=== PATIENT | female | born 1945 | race Caucasian/White ===

== ENCOUNTER → 2019-05-17 10:37 | Outpatient (BNVA) | payer MEDICARE, OTHER, SELFPAY | PROVIDERS: Family Provider Family Medicine; Visit Provider Family Medicine | DX: M25.562 Pain in left knee (principal) | CPT/HCPCS: 73562 ==

== ENCOUNTER → 2019-07-30 11:50 | Outpatient (BNVA) | payer MEDICARE, OTHER, SELFPAY | PROVIDERS: Family Provider Family Medicine; Visit Provider Family Medicine | DX: E78.5 Hyperlipidemia, unspecified (principal); E55.9 Vitamin D deficiency, unspecified; I10 Essential (primary) hypertension; K21.9 Gastro-esophageal reflux disease without esophagitis; G47.00 Insomnia, unspecified | CPT/HCPCS: 80053; 80061; 82306; 84443 ==

== ENCOUNTER → 2019-09-18 16:05 | Outpatient (BNVA) | payer MEDICARE, OTHER, SELFPAY | PROVIDERS: Family Provider Family Medicine; Visit Provider Family Medicine | DX: M25.511 Pain in right shoulder (principal) | CPT/HCPCS: 73030 ==

== ENCOUNTER 2019-10-10 14:20 | Outpatient (CLI) | payer MEDICARE, OTHER, SELFPAY ==
--- NOTE | 2019-10-10 15:15 | XR_ITS ---
WS: [id number] DEXA (DUAL ENERGY X-RAY ABSORPTIOMETRY) Bone mineral density was performed using a Vaxxas machine. HISTORY: post menopausal screen COMPARISON: None available. Lumbar spine BMD (L1-L4): 1.073 g/cm2 T score: -0.9 Z score: 0.2 Total hip BMD: Left: 0.995 g/cm2. T score: -0.1 Z score: 1.1 Right: 0.951 g/cm2. T score: -0.5 Z score: 0.7 10 year probability of a major osteoporotic fracture is 10%. XR/XR DEXA axial skeleton* [id number] IMPRESSION: NORMAL BONE MINERAL DENSITY based upon the WHO classification for females.
== END 2019-10-10 14:21 | disposition home or self-care (01) ==
LOC: RADWPI 14:31
PROVIDERS: Family Provider Family Medicine; Visit Provider Family Medicine
DX: Z78.0 Asymptomatic menopausal state (principal)
CPT/HCPCS: 77080

== ENCOUNTER → 2019-10-21 15:41 | Outpatient (BNVA) | payer MEDICARE, OTHER, SELFPAY | PROVIDERS: Family Provider Family Medicine; Visit Provider Family Medicine | DX: D72.829 Elevated white blood cell count, unspecified (principal); D72.9 Disorder of white blood cells, unspecified; R89.9 Unspecified abnormal finding in specimens from other organs, systems and tissues | CPT/HCPCS: 81000; 85025 ==

== ENCOUNTER → 2019-11-20 10:33 | Outpatient (BNVA) | payer MEDICARE, OTHER, SELFPAY | PROVIDERS: Family Provider Family Medicine; Visit Provider Internal Medicine | DX: L40.50 Arthropathic psoriasis, unspecified (principal); Z79.899 Other long term (current) drug therapy | CPT/HCPCS: 36415; 99213 ==

== ENCOUNTER 2019-11-20 12:30 | Outpatient (CLI) | payer MEDICARE, OTHER, SELFPAY ==
--- NOTE | 2019-11-20 12:38 | XRR_ITS ---
PROCEDURE INFORMATION: Exam: XR Pelvis Exam date and time: 11/20/2019 12:51 PM Age: 74 years old Clinical indication: Pelvic pain; Additional info: Evaluate for si arthritis TECHNIQUE: Imaging protocol: XR pelvis. Views: 1 or 2 view. COMPARISON: No relevant prior studies available. FINDINGS: Bones/joints: Minor SI joint degenerative sclerosis and mild bony overgrowth/spurring inferiorly compatible for patient's age. Soft tissues: Unremarkable. XR/XR pelvis 1-2V* [id number] IMPRESSION: Mild SI joint degenerative changes.
== END 2019-11-20 12:31 | disposition home or self-care (01) ==
LOC: RAD 12:35
PROVIDERS: PCP Family Medicine; Visit Provider Internal Medicine
DX: R10.2 Pelvic and perineal pain (principal); L40.50 Arthropathic psoriasis, unspecified; Z79.899 Other long term (current) drug therapy
CPT/HCPCS: 72170; 85651; 86140; 86812

== ENCOUNTER → 2020-01-16 11:28 | Outpatient (BNVA) | payer MEDICARE, OTHER, SELFPAY | PROVIDERS: PCP Family Medicine; Visit Provider Family Medicine | DX: I10 Essential (primary) hypertension (principal); E55.9 Vitamin D deficiency, unspecified; Z79.899 Other long term (current) drug therapy | CPT/HCPCS: 80053; 80061; 82306; 85025 ==

== ENCOUNTER → 2020-02-13 11:00 | Outpatient (BNVA) | payer MEDICARE, OTHER, SELFPAY | PROVIDERS: PCP Family Medicine; Visit Provider Internal Medicine | DX: L40.50 Arthropathic psoriasis, unspecified (principal) | CPT/HCPCS: 99213; 99214 ==

== ENCOUNTER 2020-03-03 09:36 | Outpatient (CLI) | payer MEDICARE, OTHER, SELFPAY ==
--- NOTE | 2020-03-03 10:00 | MM_ITS ---
WS: [id number] BILATERAL DIGITAL SCREENING MAMMOGRAPHY WITH CAD CLINICAL INFORMATION: screening HISTORY: Screening mammogram. No current complaints. COMPARISON: TECHNIQUE: Bilateral CC and MLO views. FINDINGS: Scattered fibroglandular densities bilaterally. No suspicious focal mass, asymmetry, calcifications, or architectural distortion. No evidence of malignancy. Stable intramammary lymph nodes. Lucent cente red calcification right breast. A few punctate calcifications. MM/[place] [id number] IMPRESSION: BI-RADS: 2-Benign FOLLOW UP: 1 Year Follow-up Recommend return to annual screening mammography.
== END 2020-03-03 09:37 | disposition home or self-care (01) ==
LOC: RADSHAW 09:40
PROVIDERS: PCP Family Medicine; Visit Provider Obstetrics & Gynecology
DX: Z12.31 Encounter for screening mammogram for malignant neoplasm of breast (principal)
CPT/HCPCS: 77067

== ENCOUNTER → 2020-06-30 14:11 | Outpatient (BNVA) | payer MEDICARE, OTHER, SELFPAY | PROVIDERS: PCP Family Medicine; Visit Provider Internal Medicine | DX: L40.50 Arthropathic psoriasis, unspecified (principal); Z79.899 Other long term (current) drug therapy | CPT/HCPCS: 99213 ==

== ENCOUNTER → 2020-07-17 09:21 | Outpatient (BNVA) | payer MEDICARE, OTHER, SELFPAY | PROVIDERS: PCP Family Medicine; Visit Provider Family Medicine | DX: E55.9 Vitamin D deficiency, unspecified (principal); E78.2 Mixed hyperlipidemia; Z79.899 Other long term (current) drug therapy | CPT/HCPCS: 80053; 80061; 82306; 85025; 85651 ==

== ENCOUNTER 2020-10-16 09:25 | Emergency (ER) | payer MEDICARE, OTHER, SELFPAY ==
[2020-10-16] VITALS (7 sets, daily range): BP systolic 138–182; BP diastolic 77–94; PULSE 99–109; RESP 15–16; TEMP 36.8; O2SAT 95–98; BMI 32.9
[2020-10-16] MEDS: famotidine 20 mg/2 mL INJ 40 MG IVP (09:42)
--- NOTE | 2020-10-16 09:53 | W.ED.ALLEREA ---
HPI - Allergic Reaction General: Chief complaint: Airway/Esophagus Foreign Body Stated complaint: ALLERGIC REACTION Time Seen by Provider: 10/16/20 09:43 History of Present Illness: HPI narrative: 75-year-old female presents emergency room complaining of allergic reaction. She woke up this morning the left half of her tongue is swollen. She relates it to some tonsillar irritation. She has some residual tonsil on the left side from a previous tonsillectomy which is a child he reports he gets inflamed and then seems to spread to her tongue she has had this similar episode before was treated with steroids and resolved. In route by EMS she was given epinephrine. She did report some improvement with that. She is not had any difficulty swallowing or breathing with the has had difficulty speaking because the tongue is quite enlarged, she has very slight swelling of the lips and the cheek on the left side.. She reports that the tongue is less swollen than when she arrived here. She is not had any rash or hives. They were not able to determine what triggered her previous episode although she is on an CHRIST inhibitor was at that time as well. She denies any chest pain. No recent illnesses. MD complaint: allergic reaction and facial swelling Onset (ago): minute(s) Exposure: unknown Associated symptoms: Reports dysphagia, hoarseness, lip swelling and tongue swelling; Deny abdominal pain, difficulty breathing, dizziness, facial swelling, itching, nausea, rash or vomiting Severity: moderate Treatment prior to arrival: benadryl and epinephrine Previous Allergic Reaction History: prior ED visit(s) and angioedema Review of Systems Const: Denies: fever(s), chills, body aches, change in appetite, fatigue or malaise ENMT: Reports: hoarseness Card: Denies: chest pain, edema, dyspnea on exertion or orthopnea Resp: Denies: dyspnea, productive cough or non-productive cough GI: Reports: dysphagia; Denies: abdominal pain, nausea or vomiting : Denies: flank pain, difficulty voiding, dysuria, urinary frequency or urinary urgency Skin/Breast: Denies: rash or pruritus Neuro: Denies: dizziness All/Imm: Reports: tongue swelling; Denies: facial swelling PFS ED PFSH: Medical History (Updated 10/16/20 @ 14:57 by Tony Solis DO) GERD (gastroesophageal reflux disease) History of Clostridioides difficile infection Hx of basal cell carcinoma (~2019) Hyperlipidemia Hypertension Takes medication and states that she is pretty well controlled managed by her primary care provider No pertinent past medical history Denies diabetes, asthma, seizures, DVT/PE PCP: Dr. 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 Status post surgical removal of malignant neoplasm of skin 2018--lesion removed from face Family History Son Pancreatic cancer at age 30 Grandmother Diabetes paternal Mother Hyperlipidemia Hypertension Brain cancer Father Hypertension Daughter Breast cancer Diagnosed at age 45 Denies family history of Colon cancer Ovarian cancer Heart disease Uterine cancer Thyroid condition Stroke Social History Smoking and tobacco status: never smoked Second hand smoke exposure: No Alcohol intake: never Lives independently: Yes Household members: spouse Marital status: Current occupational status: retired History of recent travel: No Current gender identity: Female Special lee needs: No Agree to transfusion: Yes Physical Exam Const: COMMON NORMALS: no acute distress GENERAL APPEARANCE: cooperative and comfortable ORIENTATION/CONSCIOUSNESS: Yes awake, Yes oriented to person, Yes oriented to place and Yes oriented to time HENMT: COMMON NORMALS: normocephalic, atraumatic, hearing grossly normal bilaterally, external ears normal, EAC's normal, TM's normal bilaterally, Normal nasal mucous membranes and turbinates present, moist oral mucous membranes and oropharynx normal HEAD & SCALP: normocephalic and atraumatic NOSE: Normal nasal mucous membranes and turbinates present EXTERNAL EAR: Yes external ears normal EXTERNAL AUDITORY CANAL: EAC's normal TYMPANIC MEMBRANE: TM's normal bilaterally TEETH & GINGIVA: Yes other (Swelling of the left half of the tongue none on the right he can visualize ) Neck/C-Spine: COMMON NORMALS: no JVD Resp: COMMON NORMALS: normal respiratory effort, No retractions, No use of accessory muscles and clear to auscultation bilaterally AUSCULTATION: clear to auscultation bilaterally Cardio: COMMON NORMALS: no JVD, regular rate, regular rhythm and No murmurs present (Cardio) RATE: regular rate RHYTHM: regular rhythm GI: COMMON NORMALS: Soft to palpation and No hepatosplenomegaly present AUSCULTATION: Yes normoactive bowel sounds PALPATION: Yes Soft to palpation, No Tenderness to palpation present (GI), No Guarding due to palpation present (GI) and Yes No hepatosplenomegaly present Extremity: COMMON NORMALS: normal to inspection, capillary refill normal, no clubbing, cyanosis or edema, no calf tenderness and no pedal edema Neuro: SENSORIUM/ORIENTATION: Yes oriented to person, Yes oriented to place and Yes oriented to time Skin: COMMON NORMALS: no rashes or lesions noted GENERAL SKIN EXAM: no rashes or lesions noted Course Vital Signs: Vital signs: Vital Signs Temperature 98.2 F 10/16/20 09:48 Pulse Rate 106 H 10/16/20 15:11 Respiratory Rate 15 10/16/20 14:44 Blood Pressure 138/83 10/16/20 15:11 Pulse Oximetry 96 10/16/20 15:11 MDM - Allergic Reaction MDM Narrative: Medical decision making narrative: Patient has an area at the base of tongue is concerning for neoplasm in the area of the base the tongue and larynx. It is resolving now him to discharge home on Medrol Dosepak we will set her up to see ENT for further evaluation of his recurrence return immediately. Lab Data: Labs: Lab Results 10/16/20 10/16/20 10/16/20 Range/Units 09:52 11:25 12:40 Sodium 139 (136-145) mmol/L Potassium 3.5 (3.5-5.1) mmol/L Chloride 104 (98-107) mmol/L Carbon Dioxide 24 (22-29) mmol/L Anion Gap 14.5 (5-19) BUN 23 (8-23) mg/dL Creatinine 1.0 H (0.5-0.9) mg/dL GFR Calculation Not Reportable Glucose 139 H (65-115) mg/dL Calculated Osmolal ity 294 (285-295) mOsm/k g Calcium 9.3 (8.5-10.5) mg/dL SARS-CoV-2 Ag (Rap id) Negative (Negative) Group A Strep Rapi d Negative (Negative) Discharge Plan Discharge Patient Disposition: Home Clinical Impression: Pharyngeal swelling, Swollen tongue Condition: Stable Prescriptions: New Medrol (Ryan) 4 mg tablets,dose pack See Rx Instructions .ROUTE .COMPLEX Qty: 21 RF: 0 No Action Claritin-D 12 Hour 5-120 mg tablet extended release 12 hr 1 tab PO Q12H PRN (Reason: allergy symptoms) Qty: 30 RF: 1 atorvastatin 20 mg tablet 20 mg PO DAILY RF: 0 doxepin 10 mg capsule 10 mg PO DAILY RF: 0 omeprazole 20 mg capsule,delayed release(DR/EC) 20 mg PO DAILY RF: 0 metoprolol succinate 25 mg tablet extended release 24 hr 12.5 mg PO BID RF: 0 lisinopril-hydrochlorothiazide 10-12.5 mg tablet 1 tab PO DAILY RF: 0 Enbrel SureClick 50 mg/mL (1 mL) pen injector 50 mg SUBCUT Q7D RF: 0 Discharge Orders: Discharge ED (Routine); Ordered 10/16/20 Ordered By: Tony Solis Referrals: Karis Garza MD [Primary Care Provider] - Patient Instructions: Opioid Safety Activity Restrictions/Additional Instructions: business support manager will make arrangements for follow-up with Dr. Reddy. Return if you have further problems. Coding Level of Care Code ED Radiographer Cardiac Catheterization for Chg Fwd Exam Comprehensive
--- NOTE | 2020-10-16 11:55 | CT_ITS ---
WS: [id number] CT NECK WITH CONTRAST HISTORY: neck/tongue swelling TECHNIQUE: Contiguous 5 mm axial images are performed through the neck with intravenous contrast. Sag ittal and coronal reformats are also submitted. All CT scans at [facility] use at least o ne of these dose optimization techniques: automated exposure control; mA and/or kV adjustment per pat ient size (includes targeted exams where dose is matched to clinical indication); or iterative recons truction. CONTRAST: CONTRAST: Visipaque 320; 95 mL IV. DLP: 455.24 mGy.cm COMPARISON: None available. Significant low attenuation centered within the LEFT larynx involving the LEFT lateral epiglottis, ph aryngoepiglottic fold, preepiglottic space and the LEFT aryepiglottic fold with extension posteriorly to the pharyngeal wall. Area of marked decreased attenuation extends over length of 2.6 cm x 1.5 cm. The tongue base is normal. There is very mild asymmetry along the LEFT palatine tonsil with mild effacement of the LEFT paraphar yngeal fat. There are small cervical chain lymph nodes. The greatest is at level 2A on the LEFT measuring 8 mm. Thyroid gland and salivary glands are normally enhancing with no masses. Straightening of the normal cervical lordosis. Severe degenerative disc space narrowing at C3-4 and C 5-6. Visualized portions of the skull base demonstrate no abnormalities. Orbits and globes are within norm al limits. No soft tissue masses. Visualized paranasal sinuses and mastoid air cells are normal. Chronic emphysema at the lung apices. CT/CT neck w con* [id number] IMPRESSION: 1. Marked low-attenuation with soft tissue thickening centered in the LEFT lat eral larynx involving the epiglottis, pharyngeal epiglottic fold, preepiglottic space in the LEFT aryepiglottic fold with extension to the posterior pharyngea l wall. Marked low attenuation may all be edema. Underlying neoplasm not exclu ded. 2. There is also asymmetric fullness in the LEFT palatine tonsil. Recommend di rect visualization. Neoplasm needs to be excluded. 3. No significant adenopathy. Notified Tony Solis DO at 10/16/2020 1:40 PM.1
[2020-10-16 11:57] LABS: SARS Covid-2 Antigen Negative (Negative)
[2020-10-16 12:34] LABS: Anion Gap 14.5 (5-19); Blood Urea Nitrogen 23 mg/dL (8-23); Calcium 9.3 mg/dL (8.5-10.5); Carbon Dioxide 24 mmol/L (22-29); Chloride 104 mmol/L (98-107); Glucose 139 mg/dL (65-115); Osmolality Calculated 294 mOsm/kg (285-295); Potassium 3.5 mmol/L (3.5-5.1); Sodium 139 mmol/L (136-145)
[2020-10-16 12:59] LABS: Rapid Strep A Test Negative (Negative)
[2020-10-16] MEDS: iodixanol 320 mg/mL 100mL Btl IV (13:19)
--- NOTE | 2020-10-19 08:58 | DCPLANNER ---
biofuels operations manager had message to schedule a follow up appointment for patient with ENT for questionable laryngeal mass and swelling. biofuels operations manager emailed patients information to Neelima Headley and Elisa at [facility]. Patients information will be printed and reviewed. Clinic will call patient with appointment information.
--- NOTE | 2020-10-21 12:01 | DCPLANNER ---
Patient called classification case manager, stating that she wanted to be referred to Dr. Brito for ENT. software sales manager faxed patients information to the office of Dr. Brito. software sales manager emailed the ENT clinic, letting Fang know that patient wanted to be seen with Dr. Brito.
--- NOTE | 2020-10-27 13:20 | DCPLANNER ---
Patient has a follow up appointment scheduled for Monday, November 02, 2020 at 2:[address] Brito. Clinic will call patient with appointment information.
--- NOTE | 2020-11-04 15:17 | DCPLANNER ---
Patient had a follow up appointment scheduled for 11.02.[address] Brito - patient did attend the appointment.
== END 2020-10-16 15:17 | disposition home or self-care (01) ==
PROVIDERS: Emergency Provider Family Medicine; PCP Family Medicine
DX: J39.2 Other diseases of pharynx (principal); K14.9 Disease of tongue, unspecified; E78.5 Hyperlipidemia, unspecified; I10 Essential (primary) hypertension; Z20.822 Contact with and (suspected) exposure to COVID-19
CPT/HCPCS: 70491; 80048; 87081; 87426; 87880; 96374; 96375; 99284; J2930; J3490; Q9967

== ENCOUNTER → 2020-11-09 16:31 | Outpatient (BNVA) | payer MEDICARE, OTHER, SELFPAY | PROVIDERS: PCP Family Medicine; Visit Provider Nurse Practitioner Family | DX: M25.562 Pain in left knee (principal); Z96.652 Presence of left artificial knee joint | CPT/HCPCS: 73562 ==

== ENCOUNTER 2020-11-17 10:15 | Outpatient (CLI) | payer MEDICARE, OTHER, SELFPAY ==
--- NOTE | 2020-11-17 10:22 | FL_ITS ---
WS: [id number] ESOPHAGRAM WITH FLUOROSCOPY HISTORY: DYSPHAGIA COMPARISON: None available. FLUOROSCOPY TIME: 1.1 minutes. Esophagus and swallowing function: Patient swallowed the barium mixture without difficulty. There is evidence for prior fundoplication. Barium traveled readily through the esophagus although there is mi ld tortuosity and mild dysmotility. There is a small recurrent hiatal hernia. No soft tissue abnormal ity noted within the cervical esophagus. No filling defects. There is mild encroachment into the post erior cervical esophagus by osteophytes from the cervical spine. These are most significant at C6-7. Gastroesophageal reflux: None. Hiatal hernia: Small hiatal hernia. FL/FL barium swallow [id number] IMPRESSION: 1. No filling defects or obstruction within the cervical esophagus. 2. Cervical osteophytes encroach into the posterior cervical esophagus at C6-7 with no obstruction of flow. 3. Recurrent small hiatal hernia.
--- NOTE | 2020-11-17 13:00 | MR_ITS ---
WS: [id number] MRI NECK with and without CONTRAST. COMPARISON: CT 10/16/2020 Multiplanar, multisequence imaging is performed with and without contrast. Sagittal and axial T1 fat sat sequences post-MultiHance 19 cc IV. Study is significantly compromised by motion back. Patient was repeatedly swallowing during the exami nation. There is persistent asymmetric soft tissue thickening involving the LEFT tongue base into the LEFT l ingual and palatine tonsil. The signal intensity is very similar to the RIGHT sided soft tissues. No focal discrete mass. Infiltrating neoplasm needs to be evaluated. This is similar to the finding at seen on the neck CT from 10/16/2020. There is less soft tissue extension into the LEFT aryepiglottic fo ld as seen on the CT. No compromise of the airway. No lymph nodes. Rim calcification within a RIGHT t hyroid nodule. Nodule measures 7 mm. Visualization of the upper thoracic structures is limited as there is significant motion artifact. MR/MR orbit face neck wo/w* [id number] IMPRESSION: 1. Persistent asymmetric soft tissue thickening involving the LEFT tongue base into the palatine and lingual tonsil. Slight improvement in the previously carina cribed soft tissue thickening that extended into the LEFT aryepiglottic fold. N o discrete change in enhancement as compared to the RIGHT side. Changes are pre dominantly due to moderate increase soft tissue thickening. This area should be readily visible by laryngoscopy. 2. No adenopathy.
[2020-11-17] MEDS: gadobenate dimeglumine 20 mL vial IV (15:40)
== END 2020-11-17 10:16 | disposition home or self-care (01) ==
PROVIDERS: PCP Family Medicine; Visit Provider Specialist
DX: R13.10 Dysphagia, unspecified (principal)
CPT/HCPCS: 70543; 74220; A9577

== ENCOUNTER → 2020-12-07 11:38 | Outpatient (BNVA) | payer MEDICARE, OTHER, SELFPAY | PROVIDERS: PCP Family Medicine; Visit Provider Internal Medicine | DX: L40.50 Arthropathic psoriasis, unspecified (principal); Z79.899 Other long term (current) drug therapy | CPT/HCPCS: 80053; 85025; 85651; 86140 ==

== ENCOUNTER → 2020-12-14 13:28 | Outpatient (BNVA) | payer MEDICARE, OTHER, SELFPAY | PROVIDERS: PCP Family Medicine; Visit Provider Internal Medicine | DX: L40.50 Arthropathic psoriasis, unspecified (principal); Z79.899 Other long term (current) drug therapy; R22.0 Localized swelling, mass and lump, head; Z87.891 Personal history of nicotine dependence | CPT/HCPCS: 99213; 99214 ==

== ENCOUNTER → 2020-12-15 11:46 | Outpatient (BNVA) | payer MEDICARE, OTHER, SELFPAY | PROVIDERS: PCP Family Medicine; Visit Provider Family Medicine | DX: R30.0 Dysuria (principal); N20.0 Calculus of kidney | CPT/HCPCS: 81003; 87086 ==

== ENCOUNTER 2020-12-21 12:57 | Outpatient (CLI) | payer MEDICARE, OTHER, SELFPAY ==
--- NOTE | 2020-12-21 13:33 | ECG_ITS ---
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 Measurements Intervals [place] Rate: 78 P: 37 SC: 144 QRS: -36 QRSD: 138 T: 70 QT: 379 QTc: 434 Interpretive Statements SINUS RHYTHM POSSIBLE LEFT ATRIAL ENLARGEMENT [-0.1mV P-WAVE IN V1/V2] LEFT AXIS DEVIATION [QRS AXIS < -30] LEFT BUNDLE BRANCH BLOCK [120+ ms QRS DURATION, 80+ ms Q/S IN V1/V2, 85+ ms R IN I/aVL/V5/V6] No previous ECG available for comparison Electronically Signed On 12-21-2020 14:23:21 CDT by Jozef Boykin M.D. [id number] f
== END 2020-12-21 12:58 | disposition home or self-care (01) ==
PROVIDERS: PCP Family Medicine; Visit Provider Specialist
DX: J35.1 Hypertrophy of tonsils (principal); R94.31 Abnormal electrocardiogram [ECG] [EKG]; I44.7 Left bundle-branch block, unspecified
CPT/HCPCS: 93005

== ENCOUNTER → 2021-03-09 10:22 | Outpatient (BNVA) | payer MEDICARE, OTHER, SELFPAY | PROVIDERS: PCP Family Medicine; Visit Provider Internal Medicine | DX: L40.50 Arthropathic psoriasis, unspecified (principal); Z79.899 Other long term (current) drug therapy | CPT/HCPCS: 80053; 85025; 85651; 86140 ==

== ENCOUNTER → 2021-03-17 14:25 | Outpatient (BNVA) | payer MEDICARE, OTHER, SELFPAY | PROVIDERS: PCP Family Medicine; Visit Provider Internal Medicine | DX: L40.50 Arthropathic psoriasis, unspecified (principal); Z79.899 Other long term (current) drug therapy | CPT/HCPCS: 99214 ==

== ENCOUNTER 2021-03-26 11:27 | Outpatient (CLI) | payer MEDICARE, OTHER, SELFPAY ==
--- NOTE | 2021-03-26 12:00 | MM_ITS ---
WS: [id number] BILATERAL DIGITAL SCREENING MAMMOGRAPHY WITH CAD CLINICAL INFORMATION: Z12.39 - Encounter for other screening for malignant neop... HISTORY: Screening mammogram. No current complaints. COMPARISON: March 03, 2020 TECHNIQUE: Bilateral CC and MLO views. FINDINGS: Scattered fibroglandular densities bilaterally. Punctate and lucent center calcifications. No suspici ous focal mass, asymmetry, calcifications , or architectural distortion. No evidence of malignancy. MM/[place] [id number] IMPRESSION: BI-RADS: 2-Benign FOLLOW UP: 1 Year Follow-up Recommend return to annual screening mammography.
== END 2021-03-26 11:28 | disposition home or self-care (01) ==
LOC: RADSHAW 11:38
PROVIDERS: PCP Family Medicine; Visit Provider Obstetrics & Gynecology
DX: Z12.31 Encounter for screening mammogram for malignant neoplasm of breast (principal)
CPT/HCPCS: 77067

== ENCOUNTER 2021-04-06 15:31 | Outpatient (CLI) | payer MEDICARE, OTHER, SELFPAY ==
--- NOTE | 2021-04-06 15:45 | USCV_ITS ---
Cheryl Beckwith Age: 75 Gender: F : 1945 Exam Date: 04/06/2021 16:10 Ordering Phys: Jozef Boykin M.D ([email or web address]) Technologist: JESSICA Exam Location: [facility] [place] Indication: dx with heart block 2019. c/o shortness of breath 1-2 years. No hx cardiac intervention. BP: / HR: 66 Rhythm: Sinus Technical Quality: Adequate MEASUREMENTS (Male / Female) Normal Values 2D ECHO LV Diastolic Diameter PLAX 3.7 cm 4.2 - 5.9 / 3.9 - 5.3 cm LV Systolic Diameter PLAX 2.4 cm IVS Diastolic Thickness 1.2 cm 0.6 - 1.0 / 0.6 - 0.9 cm IVS Systolic Thickness 1.4 cm LVPW Diastolic Thickness 1.2 cm 0.6 - 1.0 / 0.6 - 0.9 cm LVPW Systolic Thickness 1.7 cm LVOT Diameter 1.9 cm LV Ejection Fraction 2D Teich 66.0 % LV Ejection Fraction MOD 2C 55.8 % LV Ejection Fraction 2C AL 57.4 % LA Diameter 4.4 cm LA Width 3.6 cm LA Height 5.5 cm RA Width 4.0 cm RA Height 5.3 cm Aorta at Sinotubular Diameter 2.6 cm M-MODE Aortic Annulus Diameter 2.8 cm LA Ao Ratio MM 1.6 MV E Point Septal Separation 0.3 cm DOPPLER AV Peak Velocity 166.0 cm/s LVOT Peak Velocity 125.0 cm/s AV Area Cont Eq vti 2.2 cm squared AV Area Cont Eq pk 2.1 cm squared MV Area PHT 4.1 cm squared Mitral E to A Ratio 0.9 MV E' Velocity 52.0 cm/s Mitral E to MV E' Ratio 10.2 Mitral E to LV E' Lateral Ratio 7.1 Mitral E to LV E' Septal Ratio 18.2 TR Peak Velocity 248.0 cm/s TR Peak Gradient 24.6 mmHg TV Peak E Velocity 41.0 cm/s Right Atrial Pressure 10.0 mmHg Pulmonary Artery Systolic Pressu 34.6 mmHg PV Peak Velocity 120.0 cm/s RV Acceleration Time 0.1 s RV Ejection Time 0.3 s RV AcT/ET 0.2 FINDINGS Left Ventricle Normal left ventricular size. LV systolic function is normal with EF 55 to 60%. No regional wall motion abnormalities are seen. Grade 1 diastolic dysfunction. Right Ventricle The right ventricle is normal in size and function. Right Atrium The right atrium is normal in size. Left Atrium The left atrium is normal in size. Mitral Valve Moderate mitral annular calcification without significant stenosis or prolapse. There is mild to moderate mitral regurgitation. Aortic Valve Structurally normal aortic valve without significant sclerosis or stenosis. There is no aortic regurgitation. Tricuspid Valve Structurally normal tricuspid valve without significant stenosis. Mild tricuspid regurgitation. RVSP is 35 to 40 mmHg. This is consistent with mild pulmonary hypertension Pulmonic Valve Structurally normal pulmonic valve without significant stenosis. There is trace pulmonic regurgitation. Pericardium Normal pericardium without effusion. Aorta Normal ascending aorta dimension. CONCLUSIONS LV systolic function is normal with EF of 55-60% Grade 1 disatolic dysfunction Mild to moderate mitral regurgitation Moderate mitral annular calcification Mild tricuspid regurgitation Mild pulmonary hypertension Trace pulmonic regurgitation No comparison studies are available Jozef Boykin MD (Electronically Signed) Final Date: 16 April 2021 11:04 S
== END 2021-04-06 15:32 | disposition home or self-care (01) ==
LOC: RAD 15:34
PROVIDERS: PCP Family Medicine; Visit Provider Internal Medicine
DX: R06.02 Shortness of breath (principal); R07.9 Chest pain, unspecified; I27.20 Pulmonary hypertension, unspecified; I34.0 Nonrheumatic mitral (valve) insufficiency; I07.1 Rheumatic tricuspid insufficiency
CPT/HCPCS: 93306

== ENCOUNTER 2021-04-21 18:19 | Emergency (ER) | payer MEDICARE, OTHER, SELFPAY ==
[2021-04-21 18:26] VITALS: BP 189/78; PULSE 117; RESP 20; TEMP 36.6; O2SAT 99; BMI 32.0
--- NOTE | 2021-04-21 18:39 | W.ED.GENADLT ---
HPI - General Adult General: Chief complaint: Allergic Reaction Stated complaint: face numb and swelling Time Seen by Provider: 04/21/21 18:38 History of Present Illness: 75-year-old female comes in today with concerns of swelling of the left side of the tongue and some difficulty swallowing. Patient has had this 2 other times in the last year. Patient reports the first time she was seen in the office of her primary care and they gave her a shot of steroid and watched her for a while and she got better and went home. Last time patient was seen in October and was at that time treated with epinephrine on the way to the ER for concerns of an allergic reaction. Patient does not think it is secondary to an allergen. Patient has had her tonsils removed in January due to a abnormal swelling and mass of the left tonsil that was found and October. Patient also at that time noted that she had some abnormal thickening of the tissue at the base of her tongue. Patient does report some concern of this abnormal thickening and seems to be worried of cancer. After further discussion patient is on lisinopril which is known for angioedema reaction, and Enbrel which can cause anaphylaxis. Patient appears in no acute distress. Respirations are even. That patient does report some difficulty swallowing. Onset (ago): hour(s) Location: mouth Severity: mild Review of Systems ENMT: Reports: swelling of lips/tongue PFSH ED PFSH: Medical History History of Clostridioides difficile infection Hx of basal cell carcinoma (~2018) Hyperlipidemia Diagnosed in her 40s and is on medication managed by her primary care provider. Hypertension Diagnosed in her 40s and is on medication managed by her primary care provider No pertinent past medical history Denies diabetes, asthma, seizures, DVT/PE PCP: Dr. Gazra Psoriatic arthritis Diagnosed in her 60s and was most recently on Embril which was recently stopped. This is managed by her personal carer-Dr. Black Surgical History History of cholecystectomy (~2008) Laparoscopic procedure performed in 2007 History of hernia surgery (~2018) 02/23/2018 performed in [facility] History of total knee replacement (~2009) Right side Status post left knee replacement Performed in 04/2020 in [facility] Status post surgical removal of malignant neoplasm of skin 2018--lesion removed from face Tonsillectomy planned 01/19/2021--scheduled for a tonsillectomy for left-sided throat swelling and inflamed tonsils Family History Son Pancreatic cancer at age 30 Grandmother Diabetes paternal Mother Hyperlipidemia Hypertension Brain cancer Father Hypertension Daughter Breast cancer Diagnosed at age 45 Denies family history of Colon cancer Ovarian cancer Heart disease Uterine cancer Thyroid condition Stroke Social History Smoking and tobacco status: never smoked Second hand smoke exposure: Yes Alcohol intake: never Marital status: Physical Exam Const: COMMON NORMALS: alert HENMT: COMMON NORMALS: normocephalic and Normal external nose present HEAD & SCALP: normocephalic NOSE: Normal external nose present MOUTH: lip normal and tongue abnormal hypertrophic (left) THROAT: posterior oropharynx normal Eye: COMMON NORMALS: Equal, round and reactive pupils present and EOMs intact bilaterally PUPIL: Yes Equal, round and reactive pupils present Neck/C-Spine: COMMON NORMALS: full ROM and no lymphadenopathy Resp: COMMON NORMALS: normal respiratory effort and clear to auscultation bilaterally AUSCULTATION: clear to auscultation bilaterally Cardio: COMMON NORMALS: regular rate and regular rhythm RATE: regular rate RHYTHM: regular rhythm Extremity: COMMON NORMALS: normal to inspection and no pedal edema Neuro: SENSORIUM/ORIENTATION: Yes alert Psych: COMMON NORMALS: cooperative Skin: COMMON NORMALS: no rashes or lesions noted GENERAL SKIN EXAM: no rashes or lesions noted Course ED course: 2100 swelling is improved, awaiting CT report. Vital Signs: Vital signs: Vital Signs Temperature 97.8 F 04/21/21 18:26 Pulse Rate 97 04/21/21 21:15 Respiratory Rate 96 H 04/21/21 21:15 Blood Pressure 168/80 04/21/21 21:15 Pulse Oximetry 96 04/21/21 21:15 MDM - General Adult Medical Decision Making 75-year-old female comes in today with concerns of swelling of the left side of the tongue. Patient was concerned about previous study showing some abnormal thickening of the tongue with possible mass. On exam patient does have some swelling of the tongue, is managing secretions well, airway is open. No acute distress is noted. Vital signs are normal. Differential diagnosis includes angioedema, anaphylaxis, lymphedema. Patient was given 80 mg of Solu-Medrol IM and 25 mg of Benadryl. This brought resolution to the tongue swelling. Patient will be continued on prednisone 20 mg daily for the next 5 days. I reviewed patient's medication records and noticed that patient is on lisinopril and Enbrel. Either of these medications may cause similar reactions. I recommended patient talk with her primary care about stopping lisinopril and may be switching to losartan as it would be less likely cause angioedema. I also discussed Enbrel and its propensity to cause anaphylaxis. Patient would take this into advisement and talk to her specialist and her primary care tomorrow. CT of the soft tissues of the neck indicated no abnormalities at this time or increased aryepiglottic swelling or any other signs of mass. Most likely the swelling was probably due to patient's tonsillar mass that was removed in January. Lab Data : 04/21/21 20:[address] 04/21/21 18:54 IMPRESSION: 1. Beam hardening artifact related to dental work the partially obscures the oral cavity. 2. The palatine tonsils are unremarkable. No tonsillar enlargement noted. Previously noted thickening of the left palatine tonsil, seen on CT of 10/16/2020, is not identified on the current study. 3. Epiglottis is normal in appearance. No thickening of the aryepiglottic folds. Previous thickening of the left aryepiglottic fold seen on 10/16/2020 is not identified. 4. No edema or fluid collection demonstrated in the soft tissues. 5. Densely calcified 11 mm right thyroid nodule, unchanged from prior studies. No follow-up recommended. 6. No new abnormality demonstrated, when compared to the prior study. Laboratory Results Sodium 132 mmol/L (136-145) L 04/21/21 20:00 Potassium 4.2 mmol/L (3.5-5.1) 04/21/21 20:00 Chloride 98 mmol/L (98-107) 04/21/21 20:00 Carbon Dioxide 20 mmol/L (22-29) L 04/21/21 20:00 Anion Gap 18.2 (5-19) 04/21/21 20:00 BUN 18 mg/dL (8-23) 04/21/21 20:00 Creatinine 0.9 mg/dL (0.5-0.9) 04/21/21 20:00 GFR Calculation Not Reportable 04/21/21 20:00 Glucose 115 mg/dL (65-115) 04/21/21 20:00 Calculated Osmolality 277 mOsm/kg (285-295) L 04/21/21 20:00 Calcium 10.6 mg/dL (8.5-10.5) H 04/21/21 20:00 Discharge Plan Discharge Patient Disposition: Home Clinical Impression: Angioedema Qualifiers: Encounter type: initial encounter Qualified Code(s): T78.3XXA - Angioneurotic edema, initial encounter Condition: Stable Prescriptions: New prednisone 20 mg tablet 20 mg PO DAILY 5 Days Qty: 5 0RF No Action prednisone 5 mg tablet See Rx Instructions PO DAILY Qty: 60 0RF Rx Instructions: 1-2 tablets daily as needed PO daily; acetaminophen-codeine 300-60 mg tablet 1 tab PO Q8H PRN (Reason: pain) Qty: 30 0RF cholecalciferol (vitamin D3) [Optimal D3] 1,250 mcg (50,000 unit) capsule 1,250 mcg PO .once weekly Qty: 30 0RF omeprazole 20 mg capsule,delayed release(DR/EC) See Rx Instructions .ROUTE .COMPLEX Qty: 90 0RF Dose Instruction: Take 1 capsule by mouth once daily Rx Instructions: Take 1 capsule by mouth once daily atorvastatin 20 mg tablet 20 mg PO DAILY Qty: 90 1RF metoprolol succinate 25 mg tablet extended release 24 hr See Rx Instructions .ROUTE .COMPLEX Qty: 90 0RF Dose Instruction: Take 1/2 (one-half) tablet by mouth twice daily Rx Instructions: Take 1/2 (one-half) tablet by mouth twice daily doxepin 10 mg capsule See Rx Instructions .ROUTE .COMPLEX Qty: 90 0RF Dose Instruction: Take 1 capsule by mouth once daily Rx Instructions: Take 1 capsule by mouth once daily lisinopril-hydrochlorothiazide 10-12.5 mg tablet See Rx Instructions .ROUTE .COMPLEX Qty: 90 0RF Dose Instruction: Take 1 tablet by mouth once daily Rx Instructions: Take 1 tablet by mouth once daily Enbrel SureClick 50 mg/mL (1 mL) pen injector 50 mg SUBCUT Q7D Qty: 4 5RF Discharge Orders: Discharge ED (Routine); Ordered 04/21/21 Ordered By: Harpal Lyons Referrals: Karis Garza MD [Primary Care Provider] - Discharge Diet: Usual diet Discharge Activity: Increase activity as tolerated Patient Instructions: Angioedema (ED) Activity Restrictions/Additional Instructions: Home and rest. Continue with prednisone 20 mg daily for the next 5 days. I would recommend talking with your family physician about your lisinopril-containing medications and Enbrel regarding concerns of this may be the cause for your angioedema which is swelling of the tongue and mouth. Use Benadryl as needed. Follow-up with primary care. Return to the ER for worsening symptoms or new concerns. Coding Level of Care Code ED Wordpress Developer for Chg Fwd Exam Comprehensive
--- NOTE | 2021-04-21 18:54 | CTR_ITS ---
PROCEDURE INFORMATION: Exam: CT Neck With Contrast Exam date and time: 04/21/2021 6:54 PM Age: 75 years old Clinical indication: Mass, lump, or swelling in neck; Prior surgery; Surgery type: Tonsillectomy; Patient HX: C/O swelling to left side of tongue and face. ; Additional info: Swelling left tongue TECHNIQUE: Imaging protocol: Computed tomography images of the neck with contrast. Radiation optimization: All CT scans at this facility use at least one of these dose optimization techniques: automated exposure control; mA and/or kV adjustment per patient size (includes targeted exams where dose is matched to clinical indication); or iterative reconstruction. Contrast material: OMNI 300; Contrast volume: 95 ml; Contrast route: INTRAVENOUS (IV); COMPARISON: 1. MR orbit face neck wo/w* [id number] 11/17/2020 11:[address] neck w con* [id number] 10/16/2020 1:14 PM RADIATION DOSE METRICS: Total DLP (mGy-cm): 439.48 FINDINGS: Limitations: Beam hardening artifact related to dental work the partially obscures the oral cavity. Paranasal sinuses: Included paranasal sinuses are clear. Nasopharynx: Unremarkable. Oropharynx: The palatine tonsils are unremarkable. No tonsillar enlargement noted. The base of the tongue is unremarkable in appearance. Lingual tonsils are unremarkable. Hypopharynx: Unremarkable. Larynx: Epiglottis is normal in appearance. No thickening of the aryepiglottic folds. Retropharyngeal space: Unremarkable. Submandibular/Parotid glands: Bilateral submandibular glands and bilateral parotid glands are unremarkable. Thyroid: Densely calcified 11 mm right thyroid nodule, unchanged from prior studies. Lymph nodes: No pathologically enlarged lymph nodes are demonstrated. Trachea: Unremarkable. Lungs: Lung apices are free of infiltrates. Bones/joints: Degenerative changes of the cervical spine. No acute osseous abnormality noted. Soft tissues: No significant soft tissue swelling. No fluid collection. CT/CT neck w con* [id number] IMPRESSION: 1. Beam hardening artifact related to dental work the partially obscures the oral cavity. 2. The palatine tonsils are unremarkable. No tonsillar enlargement noted. Previously noted thickening of the left palatine tonsil, seen on CT of 10/16/2020, is not identified on the current study. 3. Epiglottis is normal in appearance. No thickening of the aryepiglottic folds. Previous thickening of the left aryepiglottic fold seen on 10/16/2020 is not identified. 4. No edema or fluid collection demonstrated in the soft tissues. 5. Densely calcified 11 mm right thyroid nodule, unchanged from prior studies. No follow-up recommended. 6. No new abnormality demonstrated, when compared to the prior study.
[2021-04-21] MEDS: diphenhydrAMINE 50 mg/mL SDV 1mL 25 MG IM (19:12)
[2021-04-21 20:52] LABS: Anion Gap 18.2 (5-19); Blood Urea Nitrogen 18 mg/dL (8-23); Calcium 10.6 mg/dL (8.5-10.5); Carbon Dioxide 20 mmol/L (22-29); Chloride 98 mmol/L (98-107); Glucose 115 mg/dL (65-115); Osmolality Calculated 277 mOsm/kg (285-295); Potassium 4.2 mmol/L (3.5-5.1); Sodium 132 mmol/L (136-145)
[2021-04-21] MEDS: iohexol 300 mg/mL 100 mL Btl IV (21:06)
[2021-04-21 21:15] VITALS: BP 168/80; PULSE 97; RESP 96; O2SAT 96
== END 2021-04-21 22:34 | disposition home or self-care (01) ==
PROVIDERS: Emergency Provider Nurse Practitioner Family; PCP Family Medicine
DX: T78.3XXA Angioneurotic edema, initial encounter (principal); E78.5 Hyperlipidemia, unspecified; I10 Essential (primary) hypertension; Z77.22 Contact with and (suspected) exposure to environmental tobacco smoke (acute) (chronic)
CPT/HCPCS: 70491; 80048; 96372; 99283; J1200; J2930; Q9967

== ENCOUNTER → 2021-04-30 10:49 | Outpatient (BNVA) | payer MEDICARE, OTHER, SELFPAY | PROVIDERS: PCP Family Medicine; Visit Provider Internal Medicine | DX: L40.50 Arthropathic psoriasis, unspecified (principal); R22.0 Localized swelling, mass and lump, head | CPT/HCPCS: 99214 ==

== ENCOUNTER → 2021-05-13 11:16 | Outpatient (BNVA) | payer MEDICARE, OTHER, SELFPAY | PROVIDERS: PCP Family Medicine; Visit Provider Family Medicine | DX: Z47.1 Aftercare following joint replacement surgery (principal); M25.561 Pain in right knee; Z96.651 Presence of right artificial knee joint | CPT/HCPCS: 73562 ==

== ENCOUNTER → 2021-07-09 11:29 | Outpatient (BNVA) | payer MEDICARE, OTHER, SELFPAY | PROVIDERS: PCP Family Medicine; Visit Provider Internal Medicine | DX: L40.50 Arthropathic psoriasis, unspecified (principal); Z79.899 Other long term (current) drug therapy; R73.09 Other abnormal glucose; I10 Essential (primary) hypertension; E78.5 Hyperlipidemia, unspecified; E55.9 Vitamin D deficiency, unspecified | CPT/HCPCS: 80053; 80061; 82306; 83036; 85025; 85651 ==

== ENCOUNTER → 2021-07-14 13:13 | Outpatient (BNVA) | payer MEDICARE, OTHER, SELFPAY | PROVIDERS: PCP Family Medicine; Visit Provider Internal Medicine | DX: L40.50 Arthropathic psoriasis, unspecified (principal); Z79.899 Other long term (current) drug therapy | CPT/HCPCS: 99214 ==

== ENCOUNTER 2021-07-25 08:02 | Emergency (ER) | payer MEDICARE, OTHER, SELFPAY ==
[2021-07-25 08:14] VITALS: BP 161/102; PULSE 70; RESP 15; TEMP 37.1; O2SAT 95; BMI 34.0
[2021-07-25 08:35] VITALS: BP 155/90; PULSE 71; RESP 16; O2SAT 95
--- NOTE | 2021-07-25 08:38 | ED_ITS ---
HPI - Allergic Reaction General: Chief complaint: Allergic Reaction Stated complaint: right side facial swelling/possible allergic react Time Seen by Provider: 07/25/21 08:11 Source: patient Mode of arrival: ambulatory Limitations: no limitations History of Present Illness: HPI narrative: 76-year-old female presents to the ER today for right-sided facial swelling that began this morning. Patient reports when she went to bed things were fine. She woke up this a.m. with right-sided facial swelling. Patient reports this is happened to her in the past several times. 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 Patient had an EpiPen but no longer does because the EpiPen caused her to have elevated blood pressure when it was given. Patient denies any difficulty breathing. She reports a scratchy throat but denies any tongue swelling. She reports this morning when she noticed the swelling she applied ice and took a prednisone. Patient thinks the dose of prednisone was 5 mg. She reports she did start Ozempic injections on Monday. She also woke up this morning with watery diarrhea. Denies any vomiting or nausea. Denies any change in diet. Denies any sick contacts. Patient denies any headache, fever, chills, chest pain, shortness of breath, nausea, vomiting. Review of Systems General: Reports: 10 or more systems reviewed and unremarkable except in HPI and below PFSH ED PFSH: Medical History History of Clostridioides difficile infection Hx of basal cell carcinoma (~2018) Hyperlipidemia Hypertension No pertinent past medical history Denies diabetes, asthma, seizures, DVT/PE PCP: Dr. Garza Psoriatic arthritis Diagnosed in her 60s and was most recently on Embril which was recently stopped. This is managed by her assembly loader-Dr. Black Surgical History History of cholecystectomy (~2008) Laparoscopic procedure performed in 2007 History of hernia surgery (~2017) 02/23/2018 performed in [facility] History of total knee replacement (~2009) Right side Status post left knee replacement Performed in 04/2020 in [facility] Status post surgical removal of malignant neoplasm of skin 2018--lesion removed from face Tonsillectomy planned 01/19/2021--scheduled for a tonsillectomy for left-sided throat swelling and inflamed tonsils Family History Son Pancreatic cancer at age 30 Grandmother Diabetes paternal Mother Hyperlipidemia Hypertension Brain cancer Father Hypertension Daughter Breast cancer Diagnosed at age 45 Denies family history of Colon cancer Ovarian cancer Heart disease Uterine cancer Thyroid condition Stroke Social History Smoking and tobacco status: never smoked Second hand smoke exposure: Yes Alcohol intake: never Marital status: Female Reproductive History: Date of menopause: 03/13/91 Physical Exam Const: COMMON NORMALS: no acute distress, average body habitus, patient oriented x3, healthy appearing, alert and well nourished HENMT: FACE & SINUS: edema (Mild right-sided); no ecchymosis, no erythema and no Facial tenderness on exam of face and sinuses MOUTH: Normal oral and palatal mucosa present, lip normal, tongue normal and Normal salivary glands and ducts present THROAT: posterior oropharynx normal Eye: COMMON NORMALS: conjunctivae normal CONJUNCTIVA: Yes conjunctivae normal Neck/C-Spine: COMMON NORMALS: full ROM and no lymphadenopathy Resp: COMMON NORMALS: normal respiratory effort, No retractions and clear to auscultation bilaterally EFFORT & INSPECTION: Yes able to speak in complete sentences AUSCULTATION: clear to auscultation bilaterally, no crackles, no rales, no rhonchi and no wheezes Cardio: COMMON NORMALS: regular rate and regular rhythm RATE: regular rate RHYTHM: regular rhythm GI: COMMON NORMALS: Normal to inspection, nondistended, normoactive bowel sounds present, Soft to palpation and non-tender PALPATION: Yes Soft to palpation Extremity: COMMON NORMALS: normal to inspection and full ROM Neuro: COMMON NORMALS: patient oriented x3 SENSORIUM/ORIENTATION: Yes alert Psych: COMMON NORMALS: mental status grossly normal, Normal thought process present, cooperative and speech normal SPEECH: Yes normal speech THOUGHT PROCESS: Normal thought process present Skin: COMMON NORMALS: no rashes or lesions noted GENERAL SKIN EXAM: no rashes or lesions noted Course ED course: 76-year-old female presents to the ER today for facial swelling that began this morning. Patient has had this before and did have some allergy testing which indicated alpha gal however it is always been on her left side for some reason. She denies any difficulty breathing but does report a mildly scratchy throat. She did take 1 prednisone at home which she thinks was 5 mg. The swelling has gone down since this morning. She also reports some diarrhea that began this morning. We will do Solu-Medrol and Benadryl in the ER today. Swelling is minimal at this time. There is no indication patient is in respiratory distress. We will send patient home with a short burst of steroids in addition to an EpiPen. Vital Signs: Vital signs: Vital Signs Temperature 98.7 F 07/25/21 08:14 Pulse Rate 71 07/25/21 08:35 Respiratory Rate 16 07/25/21 08:35 Blood Pressure 155/90 07/25/21 08:35 Pulse Oximetry 95 07/25/21 08:35 MDM - Allergic Reaction Medical Decision Making 76-year-old female presents to the ER today for possible allergic reaction. Patient has right-sided facial swelling that began this morning. She reports starting Ozempic earlier in the week. She does have some watery diarrhea this morning. She does have a history of alpha gal however it usually swells on her left side. Patient denies any respiratory distress, difficulty breathing, chest pain. The swelling has gone down some since this morning. Patient did take 5 mg of prednisone at home. Exam indicates minimal swelling on the right side. Patient does have some dental work on that side however reports no dental problems for the last 7 to 10 years. Patient has a patent airway with no indication of throat swelling or tongue swelling. We will do 125 of Solu-Medrol in addition to Benadryl in the ER today we will send patient home with short burst of prednisone and also an EpiPen. Patient's blood pressure is also elevated because she forgot her blood pressure meds this morning. We will go ahead and give lisinopril and metoprolol in the ER today given elevated blood pressure here. Patient should follow-up with her PCP in 2 to 3 days regarding the diarrhea after starting Ozempic and also the facial swelling. Return to the ER with new or worsening symptoms. Patient verbalized understanding and is in agreement with the treatment plan. Critical Care Time Critical Care Time: Critical Care Time: No Discharge Plan Discharge Patient Disposition: Home Clinical Impression: Right facial swelling Condition: Stable Prescriptions: New prednisone 20 mg tablet 20 mg PO DAILY 4 Days Qty: 4 0RF epinephrine 0.1 mg/0.1 mL auto-injector 0.1 ml IM ONCE PRN (Reason: hypersensitivity reaction) Qty: 2 0RF No Action Xeljanz XR 11 mg tablet extended release 24 hr 11 mg PO DAILY Qty: 30 5RF prednisone 5 mg tablet See Rx Instructions PO DAILY Qty: 60 0RF Rx Instructions: 1-2 tablets daily as needed PO daily; Ozempic 0.25 mg or 0.5 mg(2 mg/1.5 mL) pen injector 0.25 mg SUBCUT .weekly Qty: 1.5 3RF Rx Instructions: .25 mg subq weekly for 4 weeks, then increase to .5mg subq for 4 weeks, then 1mg subq for 4 weeks ondansetron HCl 4 mg tablet 4 mg PO Q8H PRN (Reason: nausea and vomiting) Qty: 15 0RF omeprazole 20 mg capsule,delayed release(DR/EC) See Rx Instructions .ROUTE .COMPLEX Qty: 90 1RF Dose Instruction: Take 1 capsule by mouth once daily Rx Instructions: Take 1 capsule by mouth once daily doxepin 10 mg capsule See Rx Instructions .ROUTE .COMPLEX Qty: 90 1RF Dose Instruction: Take 1 capsule by mouth once daily Rx Instructions: Take 1 capsule by mouth once daily cholecalciferol (vitamin D3) 1,250 mcg (50,000 unit) capsule See Rx Instructions .ROUTE .COMPLEX Qty: 4 2RF Dose Instruction: Take 1 capsule by mouth once a week Rx Instructions: Take 1 capsule by mouth once a week lisinopril 20 mg tablet 20 mg PO DAILY Qty: 90 3RF atorvastatin 20 mg tablet See Rx Instructions .ROUTE .COMPLEX Qty: 30 0RF Dose Instruction: Take 1 tablet by mouth once daily Rx Instructions: Take 1 tablet by mouth once daily metoprolol succinate 25 mg tablet extended release 24 hr 25 mg PO BID Qty: 180 3RF Discharge Orders: Discharge ED (Routine); Ordered 07/25/21 Ordered By: Maryanne Reddy Referrals: Karis Garza MD [Primary Care Provider] - Discharge Diet: Usual diet Discharge Activity: Resume usual activity Patient Instructions: Opioid Safety Activity Restrictions/Additional Instructions: Take prednisone as prescribed. Use EpiPen as prescribed. Recommend patient take Zyrtec once daily, Pepcid, and Benadryl as discussed. Follow-up with PCP in 2 to 3 days to discuss today's visit in addition to the diarrhea she is having since starting Ozempic. Return to the ER with new or worsening symptoms. Coding Level of Care Code ED Dental Manager for Evelin Cummings Exam Comprehensive
[2021-07-25] MEDS: diphenhydrAMINE 50 mg/mL SDV 1mL IM (08:57)
[2021-07-25] MEDS: metoprolol succinate ER (24 HR) 25 mg Tablet PO (08:58)
[2021-07-25] MEDS: lisinopril 20 mg Tablet PO (08:58)
[2021-07-25 09:11] VITALS: BP 152/94; PULSE 74; RESP 16; O2SAT 94
== END 2021-07-25 09:13 | disposition home or self-care (01) ==
PROVIDERS: Emergency Provider Physician Assistant; PCP Family Medicine
DX: R22.0 Localized swelling, mass and lump, head (principal)
CPT/HCPCS: 96372; 96374; 99284; J1200; J2930

== ENCOUNTER → 2021-10-26 12:07 | Outpatient (BNVA) | payer MEDICARE, OTHER, SELFPAY | PROVIDERS: PCP Family Medicine; Visit Provider Family Medicine | DX: E78.5 Hyperlipidemia, unspecified (principal); E88.81 Metabolic syndrome and other insulin resistance; I10 Essential (primary) hypertension | CPT/HCPCS: 80053; 80061; 82306; 82607; 83036; 84443; 85025 ==

== ENCOUNTER → 2021-11-24 13:06 | Outpatient (BNVA) | payer MEDICARE, OTHER, SELFPAY | PROVIDERS: PCP Family Medicine; Visit Provider Internal Medicine | DX: L40.50 Arthropathic psoriasis, unspecified (principal) | CPT/HCPCS: 99213 ==

== ENCOUNTER → 2022-01-26 09:18 | Outpatient (BNVA) | payer MEDICARE, OTHER, SELFPAY | PROVIDERS: PCP Family Medicine; Visit Provider Family Medicine | DX: E55.9 Vitamin D deficiency, unspecified (principal); G47.00 Insomnia, unspecified; E88.81 Metabolic syndrome and other insulin resistance; E78.2 Mixed hyperlipidemia; I10 Essential (primary) hypertension | CPT/HCPCS: 85025 ==

== ENCOUNTER 2022-01-31 11:42 | Outpatient (CLI) | payer MEDICARE, OTHER, SELFPAY ==
[2022-01-31 13:28] LABS: Basophils # 0.1 10^3/uL (0.0-0.1); Basophils % 0.5 %; Eosinophils # 0.1 10^3/uL (0.0-0.8); Eosinophils % 0.7 %; Hematocrit 41.6 % (37.0-47.0); Hemoglobin 13.3 g/dL (11.5-15.3); Lymphocytes # 2.1 10^3/uL (0.8-4.8); Lymphocytes % 20.7 %; Mean Corpuscular Volume 87.6 fl (81-99); Mean Platelet Volume 10.7 fL (7.4-10.4); Monocytes # 0.5 10^3/uL (0.2-0.9); Monocytes % 4.7 %; Neutrophils # 7.39 10^3/uL (1.8-7.7); Neutrophils % 73.1 %; Nucleated Red Blood Cells % 0 %; Platelet Count 272 10^3/cmm (130-400); Red Blood Count 4.75 10^6/uL (4.1-5.3); Red Cell Distribution Width 12.6 % (12.1-15.1); White Blood Count 10.1 10^3/uL (4.0-10.0)
[2022-01-31 14:00] LABS: Alanine Aminotransferase 14 U/L (0-33); Albumin Level 3.9 g/dL (3.5-5.2); Alkaline Phosphatase 170 U/L (35-105); Anion Gap 16.9 (5-19); Aspartate Amino Transferase 16 U/L (0-32); Blood Urea Nitrogen 11 mg/dL (8-23); Calcium 9.9 mg/dL (8.5-10.5); Carbon Dioxide 22 mmol/L (22-29); Chloride 102 mmol/L (98-107); Chol HDL Ratio 2.26 mg/dL (0.0-4.40); Cholesterol 163 mg/dL (0-200); Globulin 3.5 g/dL (1.3-4.6); Glucose 90 mg/dL (65-115); HDL Cholesterol 72 mg/dL (60-100); LDL Cholesterol Calculated 70 mg/dL (50-129); LDL HDL Ratio 0.97 RATIO (0.00-3.22); Osmolality Calculated 283 mOsm/kg (285-295); Potassium 3.9 mmol/L (3.5-5.1); Sodium 137 mmol/L (136-145); Thyroid Stimulating Hormone 0.56 uIU/mL (0.27-4.20); Total Bilirubin 0.8 mg/dL (0.15-1.2); Total Protein 7.4 g/dL (6.6-8.7); Triglycerides 107 mg/dL (0-150)
[2022-01-31 14:31] LABS: 25 Hydroxy Vitamin D 68 ng/mL (30-100)
== END 2022-01-31 11:43 | disposition home or self-care (01) ==
LOC: LAB 11:44
PROVIDERS: PCP Family Medicine; Visit Provider Family Medicine
DX: E55.9 Vitamin D deficiency, unspecified (principal); E78.2 Mixed hyperlipidemia; E88.81 Metabolic syndrome and other insulin resistance; G47.00 Insomnia, unspecified; I10 Essential (primary) hypertension
CPT/HCPCS: 36415; 80053; 80061; 82306; 84443; 85025

== ENCOUNTER → 2022-02-23 10:52 | Outpatient (BNVA) | payer MEDICARE, OTHER, SELFPAY | PROVIDERS: PCP Family Medicine; Visit Provider Nurse Practitioner Family | DX: R68.89 Other general symptoms and signs (principal) | CPT/HCPCS: 87400 ==

== ENCOUNTER → 2022-03-11 08:59 | Outpatient (BNVA) | payer MEDICARE, OTHER, SELFPAY | PROVIDERS: PCP Family Medicine; Visit Provider Internal Medicine | DX: R68.89 Other general symptoms and signs (principal); L40.50 Arthropathic psoriasis, unspecified; Z79.899 Other long term (current) drug therapy | CPT/HCPCS: 80053; 85025; 85651; 86140 ==

== ENCOUNTER → 2022-03-15 09:20 | Outpatient (BNVA) | payer MEDICARE, OTHER, SELFPAY | PROVIDERS: PCP Family Medicine; Visit Provider Internal Medicine | DX: L40.50 Arthropathic psoriasis, unspecified (principal); Z91.018 Allergy to other foods | CPT/HCPCS: 99214 ==

== ENCOUNTER → 2022-03-23 15:08 | Outpatient (BNVA) | payer MEDICARE, OTHER, SELFPAY | PROVIDERS: PCP Family Medicine; Visit Provider Internal Medicine | DX: R06.00 Dyspnea, unspecified (principal); R13.10 Dysphagia, unspecified; E78.2 Mixed hyperlipidemia; I10 Essential (primary) hypertension; I44.7 Left bundle-branch block, unspecified | CPT/HCPCS: 99214 ==

== ENCOUNTER 2022-04-21 12:44 | Outpatient (CLI) | payer MEDICARE, OTHER, SELFPAY ==
--- NOTE | 2022-04-21 13:08 | MM_ITS ---
WS: [id number] BILATERAL 3D TOMOSYNTHESIS DIGITAL SCREENING MAMMOGRAPHY WITH CAD CLINICAL INFORMATION: SCREENING HISTORY: Screening mammogram. No current complaints. COMPARISON: March 26, 2021 TECHNIQUE: Bilateral CC and MLO views. FINDINGS: Scattered fibroglandular densities bilaterally. No suspicious focal mass, asymmetry, calcifications, or architectural distortion. No evidence of malignancy. Lucent centered calcification RIGHT breast MM/[place] [id number] IMPRESSION: BI-RADS: 2-Benign FOLLOW UP: 1 Year Follow-up Recommend return to annual screening mammography.
== END 2022-04-21 12:45 | disposition home or self-care (01) ==
PROVIDERS: PCP Family Medicine; Visit Provider Family Medicine
DX: Z12.31 Encounter for screening mammogram for malignant neoplasm of breast (principal)
CPT/HCPCS: 77063; 77067

== ENCOUNTER → 2022-04-26 12:25 | Outpatient (BNVA) | payer MEDICARE, OTHER, SELFPAY | PROVIDERS: PCP Family Medicine; Visit Provider Family Medicine | DX: E55.9 Vitamin D deficiency, unspecified (principal); E78.2 Mixed hyperlipidemia; E88.81 Metabolic syndrome and other insulin resistance; I10 Essential (primary) hypertension; R53.83 Other fatigue; M25.562 Pain in left knee | CPT/HCPCS: 80053; 80061; 82306; 82607; 83540; 84443; 85025 ==

== ENCOUNTER → 2022-05-02 09:00 | Outpatient (BNVA) | payer MEDICARE, OTHER, SELFPAY | PROVIDERS: PCP Family Medicine; Visit Provider Obstetrics & Gynecology | DX: N20.0 Calculus of kidney (principal) | CPT/HCPCS: 84315; 87086 ==

== ENCOUNTER 2022-05-05 10:55 | Outpatient (CLI) | payer MEDICARE, OTHER, SELFPAY ==
--- NOTE | 2022-05-05 11:15 | USCV_ITS ---
Beckwith Cheryl Age: 76 Gender: F : 1945 Exam Date: 05/05/2022 11:55 Ordering Phys: Jozef Boykin M.D ([email or web address]) Technologist: Leonard Parekh Exam Location: [facility] [place] Indication: Chest pain, sob BP: 150 / 86 HR: 82 Rhythm: Sinus Technical Quality: Adequate MEASUREMENTS (Male / Female) Normal Values 2D ECHO LV Diastolic Diameter PLAX 5.2 cm 4.2 - 5.9 / 3.9 - 5.3 cm LV Systolic Diameter PLAX 3.4 cm IVS Diastolic Thickness 0.7 cm 0.6 - 1.0 / 0.6 - 0.9 cm IVS Systolic Thickness 0.9 cm LVPW Diastolic Thickness 1.1 cm 0.6 - 1.0 / 0.6 - 0.9 cm LVPW Systolic Thickness 1.3 cm LVOT Diameter 2.0 cm LV Ejection Fraction 2D Teich 62.5 % LV Ejection Fraction MOD 2C 64.7 % LV Ejection Fraction 2C AL 65.5 % LA Diameter 4.2 cm LA Width 3.7 cm LA Height 5.3 cm RA Width 3.4 cm RA Height 4.7 cm Aorta at Sinotubular Diameter 2.2 cm IVC Diameter 1.8 cm M-MODE Aortic Annulus Diameter 2.3 cm LA Ao Ratio MM 1.9 MV E Point Septal Separation 0.4 cm DOPPLER AV Peak Velocity 158.3 cm/s LVOT Peak Velocity 116.0 cm/s AV Area Cont Eq vti 2.4 cm squared AV Area Cont Eq pk 2.4 cm squared MV Peak Velocity 129.0 cm/s MV Area PHT 6.7 cm squared Mitral E to A Ratio 0.7 MV E' Velocity 46.5 cm/s Mitral E to MV E' Ratio 12.4 Mitral E to LV E' Lateral Ratio 12.6 Mitral E to LV E' Septal Ratio 12.4 TR Peak Velocity 282.8 cm/s TR Peak Gradient 32.0 mmHg TR Mean Velocity 213.2 cm/s TR Mean Gradient 19.4 mmHg TR Velocity Time Integral 74.7 cm Right Atrial Pressure 3.0 mmHg Pulmonary Artery Systolic Pressu 35.0 mmHg PV Peak Velocity 136.0 cm/s RV Acceleration Time 0.1 s RV Ejection Time 0.3 s RV AcT/ET 0.3 FINDINGS Left Ventricle Left ventricle is normal in size. LV systolic function is normal with EF of 60 to 65%. No regional wall motion abnormalities are seen. Grade 1 diastolic dysfunction Right Ventricle Normal in size and function Right Atrium Normal in size Left Atrium Dilated Mitral Valve Moderate mitral annular calcification is seen. Mild mitral regurgitation. Aortic Valve Structurally normal aortic valve. No significant stenosis or regurgitation. Tricuspid Valve Mild tricuspid regurgitation. RVSP is 35 to 40 mmHg. This is consistent with mild pulmonary hypertension. Pulmonic Valve Not well-visualized. Trace pulmonic regurgitation. Pericardium Normal Aorta Normal in size IVC Appears to be normal CONCLUSIONS LV systolic function is normal with EF of 60-65% Grade 1 diastolic dysfunction Left atrial dilation Moderate mitral annular calcification is seen. Mild mitral regurgitation Mild tricuspid regurgitation Mild pulmonary hypertension Trace pulmonic regurgitation Compared to echocardiogram from 03/2021, no significant changes are seen Jozef Boykin MD (Electronically Signed) Final Date: 07 May 2022 00:00 S
== END 2022-05-05 10:56 | disposition home or self-care (01) ==
LOC: RAD 10:57
PROVIDERS: PCP Family Medicine; Visit Provider Internal Medicine
DX: R07.9 Chest pain, unspecified (principal); I08.1 Rheumatic disorders of both mitral and tricuspid valves; R06.02 Shortness of breath; I27.20 Pulmonary hypertension, unspecified
CPT/HCPCS: 93306

== ENCOUNTER → 2022-07-20 13:24 | Outpatient (BNVA) | payer MEDICARE, OTHER, SELFPAY | PROVIDERS: PCP Family Medicine; Visit Provider Internal Medicine | DX: L40.50 Arthropathic psoriasis, unspecified (principal); Z91.018 Allergy to other foods; E55.9 Vitamin D deficiency, unspecified | CPT/HCPCS: 36415; 73120; 80053; 85025; 85651; 86140; 99214 ==

== ENCOUNTER → 2022-09-07 13:40 | Outpatient (BNVA) | payer MEDICARE, OTHER, SELFPAY | PROVIDERS: PCP Family Medicine; Visit Provider Internal Medicine | DX: Z91.018 Allergy to other foods (principal); L40.50 Arthropathic psoriasis, unspecified | CPT/HCPCS: 99214 ==

== ENCOUNTER → 2022-12-06 15:03 | Outpatient (BNVA) | payer MEDICARE, OTHER, SELFPAY | PROVIDERS: PCP Family Medicine; Visit Provider Internal Medicine | DX: L40.50 Arthropathic psoriasis, unspecified (principal); Z91.018 Allergy to other foods | CPT/HCPCS: 99214 ==

== ENCOUNTER → 2022-12-21 13:10 | Outpatient (BNVA) | payer MEDICARE, OTHER, SELFPAY | PROVIDERS: PCP Family Medicine; Visit Provider Internal Medicine | DX: R13.10 Dysphagia, unspecified (principal); E78.2 Mixed hyperlipidemia; I10 Essential (primary) hypertension; I44.7 Left bundle-branch block, unspecified; R06.00 Dyspnea, unspecified | CPT/HCPCS: 99214 ==

== ENCOUNTER → 2023-01-31 11:18 | Outpatient (BNVA) | payer MEDICARE, OTHER, SELFPAY | PROVIDERS: PCP Family Medicine; Visit Provider Family Medicine | DX: I10 Essential (primary) hypertension (principal); E78.5 Hyperlipidemia, unspecified; E88.819 Insulin resistance, unspecified; K21.9 Gastro-esophageal reflux disease without esophagitis; E55.9 Vitamin D deficiency, unspecified | CPT/HCPCS: 80053; 80061; 82306; 83036; 84443; 85025 ==

== ENCOUNTER → 2023-03-22 11:55 | Outpatient (BNVA) | payer MEDICARE, OTHER, SELFPAY | PROVIDERS: PCP Family Medicine; Visit Provider Internal Medicine | DX: M19.072 Primary osteoarthritis, left ankle and foot (principal); M79.672 Pain in left foot; L40.50 Arthropathic psoriasis, unspecified | CPT/HCPCS: 73620; 99214 ==

== ENCOUNTER → 2023-04-06 08:26 | Outpatient (BNVA) | payer MEDICARE, OTHER, SELFPAY | PROVIDERS: PCP Family Medicine; Visit Provider Podiatrist Foot & Ankle Surgery | DX: G57.92 Unspecified mononeuropathy of left lower limb (principal); M19.072 Primary osteoarthritis, left ankle and foot | CPT/HCPCS: 99203 ==

== ENCOUNTER 2023-04-27 13:43 | Outpatient (CLI) | payer MEDICARE, OTHER, SELFPAY ==
--- NOTE | 2023-04-27 13:47 | MM_ITS ---
WS: [id number] BILATERAL SCREENING DIGITAL TOMOSYNTHESIS MAMMOGRAM WITH CAD HISTORY: Z12.31 - Encounter for screening mammogram for malignant ... COMPARISON: 12/19/2022 and 03/26/2021 Bilateral CC and MLO views with tomosynthesis and synthetic mammography submitted. Computer aided det ection analyzed. Breast composition: There are scattered areas of fibroglandular density. No suspicious masses, microc alcifications or architectural distortion. Benign calcifications within each breast. Stable lymph nod e upper outer quadrant RIGHT breast. IMPRESSION: MM/[place] [id number] BI-RADS: 2-Benign FOLLOW UP: 1 Year Follow-up
--- NOTE | 2023-04-27 14:00 | XR_ITS ---
WS: [id number] SCREENING DEXA SCAN [employer] CLINICAL INFORMATION: Z78.0 - Asymptomatic menopausal state COMPARISON: 2019 FINDINGS: The L1-L4 bone mineral density measures 1.079 g/cm2. This corresponds to a T score score of -0.8 and Z score of 0.4. Left femoral neck bone mineral density measures 0.946 g/cm2. This corresponds to a T score of -0.5 an d Z score of 0.9. Right femoral neck bone mineral density measures 0.933 g/cm2. This corresponds to a T score -0.6of an d Z score of 0.8. Mean femoral neck bone mineral density measures 0.939 g/cm2. This corresponds to a T score of -0.5 an d Z score of 0.9. IMPRESSION: Normal bone mineralization. Patient's FRAX calculated 10 year probability for major osteoporotic fracture is 11.6% and osteoporot ic hip fracture is 2.5%. Bone marrow density lumbar spine increased 0.6% Bone mineral density femoral necks decreased -3.5%
== END 2023-04-27 13:44 | disposition home or self-care (01) ==
LOC: RAD 13:43
PROVIDERS: PCP Family Medicine; Visit Provider Nurse Practitioner Women's Health
DX: Z12.31 Encounter for screening mammogram for malignant neoplasm of breast (principal); R92.323 Mammographic fibroglandular density, bilateral breasts; R92.1 Mammographic calcification found on diagnostic imaging of breast; Z13.820 Encounter for screening for osteoporosis; Z78.0 Asymptomatic menopausal state
CPT/HCPCS: 77063; 77067; 77080

== ENCOUNTER 2023-05-08 12:08 | Emergency (ER) | payer MEDICARE, OTHER, SELFPAY ==
[2023-05-08 12:38] LABS: Basophils % 0.4 %; Eosinophils % 0.6 %; Lymphocytes # 2.1 10^3/uL (0.8-4.8); Lymphocytes % 30.4 %; Mean Corpuscular HGB Conc 32.3 g/dL (30-55); Mean Corpuscular Hemoglobin 28.9 pg (27-33); Mean Corpuscular Volume 89.4 fl (85-98); Mean Platelet Volume 10.1 fL (7.4-10.4); Monocytes # 0.4 10^3/uL (0.2-0.9); Monocytes % 6.1 %; Neutrophils # 4.31 10^3/uL (1.8-7.7); Neutrophils % 62.2 %; Nucleated Red Blood Cells % 0 %; Platelet Count 232 10^3/cmm (157-399); Red Blood Count 4.36 10^6/uL (3.85-5.65); Red Cell Distribution Width 12.4 % (12.1-15.1); White Blood Count 6.93 10^3/uL (3.29-11.43)
[2023-05-08 12:45] VITALS: BP 146/74; PULSE 80; RESP 16; TEMP 37.2; O2SAT 98; BMI 31.2
[2023-05-08 12:59] LABS: Alanine Aminotransferase 13 U/L (0-33); Albumin Level 3.8 g/dL (3.5-5.2); Alkaline Phosphatase 131 U/L (35-105); Anion Gap 16.4 (5-19); Aspartate Amino Transferase 17 U/L (0-32); Blood Urea Nitrogen 9 mg/dL (8-23); Calcium 8.9 mg/dL (8.5-10.5); Carbon Dioxide 22 mmol/L (22-29); Chloride 104 mmol/L (98-107); Globulin 3.1 g/dL (1.3-4.6); Glucose 118 mg/dL (65-115); Osmolality Calculated 288 mOsm/kg (285-295); Potassium 3.4 mmol/L (3.5-5.1); Sodium 139 mmol/L (136-145); Total Bilirubin 0.6 mg/dL (0.15-1.2); Total Protein 6.9 g/dL (6.6-8.7)
--- NOTE | 2023-05-08 14:39 | PC.NURSE ---
Urine and stool samples sent to lab
--- NOTE | 2023-05-08 14:41 | W.ED.NAVMDI ---
HPI - Nausea/Vomiting/Diarrhea General: Chief complaint: Nausea/Vomiting/Diarrhea Stated complaint: diarrhea for 11 days Time Seen by Provider: 05/08/23 14:31 Source: patient Mode of arrival: ambulatory Limitations: no limitations History of Present Illness: Patient is a 77-year-old female presents to ED today with a complaint of diarrhea. She states diarrhea started approximately 11 days ago. She states on her first day of illness she did run fevers as high as 102 but took some Tylenol which alleviated this and states the fevers have not returned. She is reporting anywhere from 15-20 loose watery diarrhea stools a day. She states she will have some abdominal cramping prior to defecation but this seems to resolve afterwards. No abdominal pain currently. She saw her PCP approximately 4 days ago who placed her on Lomotil. She states this medication has been helping with her diarrhea. She has not been having nausea or vomiting. No sick contacts. No recent antibiotic use. She does have a history of C. difficile. No rectal pain, mass, itching, or bleeding. MD elicited complaint: diarrhea Onset (ago): day(s) Description of diarrhea: watery Associated nausea: No Associated abdominal pain: Yes Location of pain: Diffuse Pain consistency: intermittent Quality: cramping Exacerbating factors: none Relieving factors: bowel movement Associated symtoms: Reports no associated symptoms; Denies chest pain, dizziness, dysuria, fatigue, headache(s), malaise or nausea Treatment prior to arrival: other (Lomotil) Review of Systems Const: Reports: fever(s) (on day one of illness but none since); Denies: chills, body aches, fatigue or malaise Card: Denies: chest pain Resp: Denies: dyspnea GI: Reports: abdominal pain, diarrhea and GI cramping; Denies: nausea, vomiting, hematemesis, heartburn, rectal pain, rectal itching, hematochezia or melena : Denies: flank pain, dysuria or hematuria Musc: Denies: back pain Skin/Breast: Denies: rash Neuro: Denies: headache(s) or dizziness [facility] [place] ED PFSH: Medical History Basal cell carcinoma Metabolic syndrome No pertinent past medical history Denies diabetes, asthma, seizures, DVT/PE PCP: Dr. Garza Hyperlipidemia History of Clostridioides difficile infection Psoriatic arthritis Diagnosed in her 60s and was most recently on Embril which was recently stopped. 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 Clancy, 2 polyps removed Tonsillectomy planned 01/19/2021--scheduled for a tonsillectomy for left-sided throat swelling and inflamed tonsils Status post left knee replacement Performed in 04/2020 in [facility] Status post surgical removal of malignant neoplasm of skin 2018--lesion removed from face History of total knee replacement (~2009) Right side History of cholecystectomy (~2008) Laparoscopic procedure performed in 2007 History of hernia surgery (~2017) 02/23/2018 performed in [facility] Family History Son Pancreatic cancer at age 30 Grandmother Diabetes paternal Mother Hyperlipidemia Hypertension Brain cancer Father Hypertension Daughter Breast cancer Diagnosed at age 45 Denies family history of Colon cancer Ovarian cancer Heart disease Uterine cancer Thyroid disease Stroke Female Reproductive History: Date of menopause: 03/13/91 Physical Exam Const: COMMON NORMALS: no acute distress, average body habitus, patient oriented x3, no limitations, healthy appearing, alert and well nourished Eye: COMMON NORMALS: no scleral icterus Resp: COMMON NORMALS: normal respiratory effort and clear to auscultation bilaterally AUSCULTATION: clear to auscultation bilaterally Cardio: COMMON NORMALS: regular rate and regular rhythm RATE: regular rate RHYTHM: regular rhythm GI: COMMON NORMALS: Normal to inspection, nondistended, normoactive bowel sounds present, Soft to palpation, non-tender, No hepatosplenomegaly present and no masses INSPECTION: Yes normal to inspection AUSCULTATION: Yes normoactive bowel sounds PALPATION: Yes Soft to palpation, No Tenderness to palpation present (GI), No Guarding due to palpation present (GI), No Rigid due to palpation and Yes No hepatosplenomegaly present Neuro: COMMON NORMALS: patient oriented x3 SENSORIUM/ORIENTATION: Yes alert Course Vital Signs: Vital signs: Vital Signs Temperature 98.9 F 05/08/23 12:45 Pulse Rate 84 02/26/24 15:30 Respiratory Rate 16 05/08/23 15:30 Blood Pressure 172/76 05/08/23 15:30 Pulse Oximetry 98 05/08/23 15:30 Oxygen Delivery Me thod Room Air 05/08/23 15:30 MDM - Nausea/Vomiting/Diarrhea Medical Decision Making Patient appears in no acute distress. Her vital signs are stable. She has no fevers or abdominal pain. Blood work overall is unremarkable. Very mild hypokalemia at 3.4. She was given oral replacement for this here. Stool samples obtained based on her complaint of diarrhea x 11 days. C. difficile currently pending at time of discharge and lab states that will be an additional 45 minutes until results. Patient would like to go home and be called with results. If negative my recommendation would be to await remainder of results of stool panel and tailor treatment based on this. She can continue to follow-up with her PCP Dr. Garza. Return precautions given. Medical Records I reviewed the patient's medical records. Lab Data I reviewed the patient's lab results. 05/08/23 12:24 05/08/23 12:24 Laboratory Results WBC 6.93 10^3/uL (3.29-11.43) 05/08/23 12:24 RBC 4.36 10^6/uL (3.85-5.65) 05/08/23 12:24 Hgb 12.60 g/dL (11.27-16.99) 05/08/23 12:24 Hct 39.0 % (36-47) 05/08/23 12:24 MCV 89.4 fl (85-98) 05/08/23 12:24 MCH 28.9 pg (27-33) 05/08/23 12:24 MCHC 32.3 g/dL (30-55) 05/08/23 12:24 RDW 12.4 % (12.1-15.1) 05/08/23 12:24 Plt Count 232 10^3/cmm (157-399) 05/08/23 12:24 MPV 10.1 fL (7.4-10.4) 05/08/23 12:24 Neut % (Auto) 62.2 % 05/08/23 12:24 Lymph % (Auto) 30.4 % 05/08/23 12:24 [place] % (Auto) 6.1 % 05/08/23 12:24 Eos % (Auto) 0.6 % 05/08/23 12:24 Baso % (Auto) 0.4 % 05/08/23 12:24 Neut # (Auto) 4.31 10^3/uL (1.8-7.7) 05/08/23 12:24 Lymph # (Auto) 2.1 10^3/uL (0.8-4.8) 05/08/23 12:24 [place] # (Auto) 0.4 10^3/uL (0.2-0.9) 05/08/23 12:24 Eos # (Auto) 0.0 10^3/uL (0.0-0.8) 05/08/23 12:24 Baso # (Auto) 0.0 10^3/uL (0.0-0.1) 05/08/23 12:24 Nucleated RBC % (auto) 0 % 05/08/23 12:24 Nucleated RBCs # 0.0 /100WBC 05/08/23 12:24 Sodium 139 mmol/L (136-145) 05/08/23 12:24 Potassium 3.4 mmol/L (3.5-5.1) L 05/08/23 12:24 Chloride 104 mmol/L (98-107) 05/08/23 12:24 Carbon Dioxide 22 mmol/L (22-29) 05/08/23 12:24 Anion Gap 16.4 (5-19) 05/08/23 12:24 BUN 9 mg/dL (8-23) 05/08/23 12:24 Creatinine 0.9 mg/dL (0.5-0.9) 05/08/23 12:24 GFR Calculation Not Reportable 05/08/23 12:24 Glucose 118 mg/dL (65-115) H 05/08/23 12:24 Calculated Osmolality 288 mOsm/kg (285-295) 05/08/23 12:24 Calcium 8.9 mg/dL (8.5-10.5) 05/08/23 12:24 Total Bilirubin 0.6 mg/dL (0.15-1.2) 05/08/23 12:24 AST 17 U/L (0-32) 05/08/23 12:24 ALT 13 U/L (0-33) 05/08/23 12:24 Alkaline Phosphatase 131 U/L (35-105) H 05/08/23 12:24 Total Protein 6.9 g/dL (6.6-8.7) 05/08/23 12:24 Albumin 3.8 g/dL (3.5-5.2) 05/08/23 12:24 Globulin 3.1 g/dL (1.3-4.6) 05/08/23 12:24 No radiology studies performed this visit Discharge Plan Discharge Patient Disposition: Home Clinical Impression: Diarrhea Qualifiers: Diarrhea type: unspecified type Qualified Code(s): R19.7 - Diarrhea, unspecified Condition: Stable Prescriptions: No Action ondansetron HCl 4 mg tablet 4 mg PO Q8H PRN (Reason: nausea and vomiting) Qty: 15 0RF furosemide [Lasix] 20 mg tablet 20 mg PO DAILY PRN (Reason: edema) Qty: 30 1RF gabapentin 300 mg capsule 300 mg PO .hs Qty: 30 3RF Otezla 30 mg tablet See Rx Instructions .ROUTE .COMPLEX Qty: 60 5RF Dose Instruction: TAKE ONE TABLET BY MOUTH TWICE DAILY Rx Instructions: TAKE ONE TABLET BY MOUTH TWICE DAILY diclofenac sodium [Arthritis Pain (diclofenac)] 1 % gel 4 g topical QID Qty: 100 0RF Rx Instructions: apply to single knee, ankle, foot; for foot includes sole/toes/top of foot [place] Probiotic 14 billion cell capsule PO diphenoxylate-atropine [Lomotil] 2.5-0.025 mg tablet 1 tab PO TID PRN (Reason: diarrhea) Qty: 20 0RF Ozempic 2 mg/dose (8 mg/3 mL) pen injector See Rx Instructions .ROUTE .COMPLEX Qty: 6 2RF Dose Instruction: INJECT 2MG SUBCUTANEOUSLY WEEKLY. Rx Instructions: INJECT 2MG SUBCUTANEOUSLY WEEKLY. meloxicam 15 mg tablet 15 mg PO DAILY Qty: 30 3RF omeprazole 20 mg capsule,delayed release(DR/EC) See Rx Instructions .ROUTE .COMPLEX Qty: 90 1RF Dose Instruction: TAKE ONE CAPSULE BY MOUTH EVERY DAY Rx Instructions: TAKE ONE CAPSULE BY MOUTH EVERY DAY atorvastatin 20 mg tablet See Rx Instructions .ROUTE .COMPLEX Qty: 90 3RF Dose Instruction: TAKE ONE TABLET BY MOUTH EVERY DAY. Rx Instructions: TAKE ONE TABLET BY MOUTH EVERY DAY. doxepin 10 mg capsule See Rx Instructions .ROUTE .COMPLEX Qty: 90 1RF Dose Instruction: TAKE ONE CAPSULE BY MOUTH EVERY DAY Rx Instructions: TAKE ONE CAPSULE BY MOUTH EVERY DAY carvedilol 12.5 mg tablet See Rx Instructions .ROUTE .COMPLEX Qty: 180 3RF Dose Instruction: TAKE ONE TABLET BY MOUTH TWICE DAILY WITH FOOD Rx Instructions: TAKE ONE TABLET BY MOUTH TWICE DAILY WITH FOOD epinephrine 0.1 mg/0.1 mL auto-injector 0.1 ml IM ONCE PRN (Reason: hypersensitivity reaction) Qty: 2 0RF Discharge Orders: Discharge ED (Routine); Ordered 05/08/23 Ordered By: Virgen Guardado Referrals: Karis Garza MD [Primary Care Provider] - Patient Instructions: Diarrhea - Adult Activity Restrictions/Additional Instructions: As we discussed you did not wish to wait on the results of your C. difficile as lab indicated it would be another 45 minutes prior to results. I will contact you as soon as these results come back. If positive, we will call you in antibiotics to your pharmacy. If negative, I would like to wait on the remainder of your stool panel results to come back to initiate any further treatment. This can take a few days. This can also be followed up with your primary care provider Dr. Garza. Coding Level of Care Code ED Manager Customer for Evelin Cummings
[2023-05-08 14:44] VITALS: BP 180/99; PULSE 81; RESP 16; O2SAT 98
[2023-05-08 15:30] VITALS: BP 172/76; PULSE 84; RESP 16; O2SAT 98
[2023-05-08] MEDS: potassium chloride ER 20 mEq Tablet 40 MEQ PO (15:42)
[2023-05-08 16:22] LABS: C.Diff PCR (Lab) NEGATIVE (Negative)
== END 2023-05-08 15:54 | disposition home or self-care (01) ==
PROVIDERS: Emergency Medicine; Emergency Provider Physician Assistant; PCP Family Medicine
DX: R19.7 Diarrhea, unspecified (principal); E78.5 Hyperlipidemia, unspecified; I10 Essential (primary) hypertension
CPT/HCPCS: 36415; 80053; 82274; 83630; 85025; 87045; 87177; 87209; 87427; 87449; 87493; 99283

== ENCOUNTER 2023-05-15 09:51 | Emergency (ER) | payer MEDICARE, OTHER, SELFPAY ==
[2023-05-15 10:22] VITALS: BP 147/84; PULSE 76; RESP 16; TEMP 36.7; O2SAT 96; BMI 30.7
[2023-05-15 11:23] LABS: Basophils % 0.4 %; Eosinophils % 0.6 %; Hematocrit 37.5 % (36-47); Lymphocytes # 2.3 10^3/uL (0.8-4.8); Lymphocytes % 32.8 %; Mean Corpuscular HGB Conc 32.8 g/dL (30-55); Mean Corpuscular Hemoglobin 28.9 pg (27-33); Mean Corpuscular Volume 88.2 fl (85-98); Monocytes # 0.5 10^3/uL (0.2-0.9); Monocytes % 6.6 %; Neutrophils % 59.5 %; Nucleated Red Blood Cells % 0 %; Platelet Count 238 10^3/cmm (157-399); Red Blood Count 4.25 10^6/uL (3.85-5.65); Red Cell Distribution Width 12.8 % (12.1-15.1); White Blood Count 7.07 10^3/uL (3.29-11.43)
--- NOTE | 2023-05-15 11:36 | CT_ITS ---
WS: [id number] CT ABDOMEN PELVIS TECHNIQUE: Contrast-enhanced CT of the abdomen and pelvis with coronal and sagittal reformatted image s. CLINICAL INFORMATION: abd pain/diarrhea COMPARISON: None. DLP: 590.[address] scans at [facility] use at least one of these dose optimization techniques: automated e xposure control; mA and/or kV adjustment per patient size (includes targeted exams where dose is matc hed to clinical indication); or iterative reconstruction. FINDINGS: Slight subsegmental atelectasis in the lung bases. Hypertrophic changes lower thoracic spine. Small e sophageal hiatal hernia. Diffuse submucosal enhancement involving the proximal and distal small bowel with mild wall thickening. In addition, submucosal enhancement with mild wall thickening involving t he colon. Findings suspicious for infectious or inflammatory enterocolitis. A few air-fluid levels in the transverse colon. No evidence of high-grade obstruction. Mild diffuse fatty infiltration of the liver. Normal portal vein and splenic vein. Fatty atrophy of t he pancreas. Cholecystectomy clips. Adrenal glands are normal. Bilateral renal atrophy. Normal renal parenchymal enhancement. No hydronephrosis. Parenchymal cortical scarring LEFT kidney. Celiac and SMA are patent. Normal caliber abdominal aorta. Mild aortic calcification. Slight anterolisthesis L4 on L5. Disc space narrowing worse at L5-S1 IMPRESSION: 1. Diffuse submucosal enhancement with mild wall thickening involving the proximal and distal small bowel as well as the entire colon suspicious for infectious or inflammatory enterocolitis. 2. A few air-fluid levels in the transverse colon. 3. Small esophageal hernia. 4. No other acute findings.
[2023-05-15 11:44] LABS: Alanine Aminotransferase 9 U/L (0-33); Albumin Level 3.8 g/dL (3.5-5.2); Alkaline Phosphatase 123 U/L (35-105); Anion Gap 13.9 (5-19); Aspartate Amino Transferase 15 U/L (0-32); Blood Urea Nitrogen 10 mg/dL (8-23); Carbon Dioxide 25 mmol/L (22-29); Chloride 107 mmol/L (98-107); Creatinine Clr Calc Pharmacy 58.0716; Globulin 2.7 g/dL (1.3-4.6); Glucose 98 mg/dL (65-115); Osmolality Calculated 293 mOsm/kg (285-295); Potassium 3.9 mmol/L (3.5-5.1); Sodium 142 mmol/L (136-145); Total Bilirubin 0.5 mg/dL (0.15-1.2); Total Protein 6.5 g/dL (6.6-8.7)
--- NOTE | 2023-05-15 11:45 | W.ED.ABDPA2 ---
HPI - Abdominal Pain General: Chief Complaint: Abdominal Pain Stated Complaint: diarrhea for several days Time Seen by Provider: 05/15/23 11:22 Source: patient Mode of arrival: ambulatory Limitations: no limitations History of Present Illness: 77-year-old female states that she has had diarrhea for the last 18 days she seen by her PCP and seen here states been taking Imodium at home but is had no relief she had stool culture here that was C. difficile negative did have a lactoferrin but the cultures are still pending she had some abdominal cramping denies any fevers states she is having 10-15 diarrheas a day PFSH ED PFSH: Medical History Basal cell carcinoma Metabolic syndrome No pertinent past medical history Denies diabetes, asthma, seizures, DVT/PE PCP: Dr. Garza Hyperlipidemia History of Clostridioides difficile infection Psoriatic arthritis Diagnosed in her 60s and was most recently on Embril which was recently stopped. 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 Clancy, 2 polyps removed Tonsillectomy planned 01/19/2021--scheduled for a tonsillectomy for left-sided throat swelling and inflamed tonsils Status post left knee replacement Performed in 04/2020 in [facility] Status post surgical removal of malignant neoplasm of skin 2018--lesion removed from face History of total knee replacement (~2009) Right side History of cholecystectomy (~2008) Laparoscopic procedure performed in 2007 History of hernia surgery (~2018) 02/23/2018 performed in [facility] Family History Son Pancreatic cancer at age 30 Grandmother Diabetes paternal Mother Hyperlipidemia Hypertension Brain cancer Father Hypertension Daughter Breast cancer Diagnosed at age 45 Denies family history of Colon cancer Ovarian cancer Heart disease Uterine cancer Thyroid disease Stroke Female Reproductive History: Date of menopause: 03/13/91 Physical Exam Const: COMMON NORMALS: no acute distress, patient oriented x3 and healthy appearing HENMT: COMMON NORMALS: normocephalic and atraumatic HEAD & SCALP: normocephalic and atraumatic Eye: COMMON NORMALS: conjunctivae normal CONJUNCTIVA: Yes conjunctivae normal Neck/C-Spine: COMMON NORMALS: full ROM and supple Chest: COMMONS NORMALS: normal inspection of the chest Resp: COMMON NORMALS: normal respiratory effort and clear to auscultation bilaterally AUSCULTATION: clear to auscultation bilaterally Cardio: COMMON NORMALS: regular rate, regular rhythm and No murmurs present (Cardio) RATE: regular rate RHYTHM: regular rhythm GI: COMMON NORMALS: Normal to inspection, nondistended, normoactive bowel sounds present, Soft to palpation, non-tender and no masses PALPATION: Yes Soft to palpation Extremity: COMMON NORMALS: normal to inspection and full ROM Neuro: COMMON NORMALS: patient oriented x3, moves all extremities and no focal motor deficits Psych: COMMON NORMALS: mental status grossly normal, Normal thought process present and cooperative THOUGHT PROCESS: Normal thought process present Skin: COMMON NORMALS: no rashes or lesions noted and no wounds GENERAL SKIN EXAM: no rashes or lesions noted Course Vital Signs: Vital signs: Vital Signs Temperature 98.0 F 05/15/23 10:22 Pulse Rate 76 05/15/23 10:22 Respiratory Rate 16 05/15/23 10:22 Blood Pressure 173/80 05/15/23 11:57 Pulse Oximetry 97 05/15/23 11:57 Oxygen Delivery Me thod Room Air 05/15/23 10:22 MDM - Abdominal Pain Medical Decision Making Patient presents here with diarrhea it has been on for [address] did show colitis we will start her on Cipro Flagyl she is to follow-up with surgery she is return if worsening she understands agrees to plan Medical Records I reviewed the patient's medical records. Lab Data I reviewed the patient's lab results. 05/15/23 11:15 05/15/23 11:15 Labs/Radiology: Laboratory Results WBC 7.07 10^3/uL (3.29-11.43) 05/15/23 11:15 RBC 4.25 10^6/uL (3.85-5.65) 05/15/23 11:15 Hgb 12.30 g/dL (11.27-16.99) 05/15/23 11:15 Hct 37.5 % (36-47) 05/15/23 11:15 MCV 88.2 fl (85-98) 05/15/23 11:15 MCH 28.9 pg (27-33) 05/15/23 11:15 MCHC 32.8 g/dL (30-55) 05/15/23 11:15 RDW 12.8 % (12.1-15.1) 05/15/23 11:15 Plt Count 238 10^3/cmm (157-399) 05/15/23 11:15 MPV 10.0 fL (7.4-10.4) 05/15/23 11:15 Neut % (Auto) 59.5 % 05/15/23 11:15 Lymph % (Auto) 32.8 % 05/15/23 11:15 [place] % (Auto) 6.6 % 05/15/23 11:15 Eos % (Auto) 0.6 % 05/15/23 11:15 Baso % (Auto) 0.4 % 05/15/23 11:15 Neut # (Auto) 4.20 10^3/uL (1.8-7.7) 05/15/23 11:15 Lymph # (Auto) 2.3 10^3/uL (0.8-4.8) 05/15/23 11:15 [place] # (Auto) 0.5 10^3/uL (0.2-0.9) 05/15/23 11:15 Eos # (Auto) 0.0 10^3/uL (0.0-0.8) 05/15/23 11:15 Baso # (Auto) 0.0 10^3/uL (0.0-0.1) 05/15/23 11:15 Nucleated RBC % (auto) 0 % 05/15/23 11:15 Nucleated RBCs # 0.0 /100WBC 05/15/23 11:15 Sodium 142 mmol/L (136-145) 05/15/23 11:15 Potassium 3.9 mmol/L (3.5-5.1) 05/15/23 11:15 Chloride 107 mmol/L (98-107) 05/15/23 11:15 Carbon Dioxide 25 mmol/L (22-29) 05/15/23 11:15 Anion Gap 13.9 (5-19) 05/15/23 11:15 BUN 10 mg/dL (8-23) 05/15/23 11:15 Creatinine 0.8 mg/dL (0.5-0.9) 05/15/23 11:15 GFR Calculation Not Reportable 05/15/23 11:15 Glucose 98 mg/dL (65-115) 05/15/23 11:15 Calculated Osmolality 293 mOsm/kg (285-295) 05/15/23 11:15 Calcium 9.0 mg/dL (8.5-10.5) 05/15/23 11:15 Total Bilirubin 0.5 mg/dL (0.15-1.2) 05/15/23 11:15 AST 15 U/L (0-32) 05/15/23 11:15 ALT 9 U/L (0-33) 05/15/23 11:15 Alkaline Phosphatase 123 U/L (35-105) H 05/15/23 11:15 Total Protein 6.5 g/dL (6.6-8.7) L 05/15/23 11:15 Albumin 3.8 g/dL (3.5-5.2) 05/15/23 11:15 Globulin 2.7 g/dL (1.3-4.6) 05/15/23 11:15 All radiology interpretation(s) finalized by discharge Discharge Plan Discharge Patient Disposition: Home Clinical Impression: Colitis Diarrhea Qualifiers: Diarrhea type: unspecified type Qualified Code(s): R19.7 - Diarrhea, unspecified Condition: Stable Prescriptions: New metronidazole 500 mg tablet 500 mg PO Q8H 7 Days Qty: 21 0RF Cipro 500 mg tablet 500 mg PO BID Qty: 14 0RF No Action ondansetron HCl 4 mg tablet 4 mg PO Q8H PRN (Reason: nausea and vomiting) Qty: 15 0RF furosemide [Lasix] 20 mg tablet 20 mg PO DAILY PRN (Reason: edema) Qty: 30 1RF diclofenac sodium [Arthritis Pain (diclofenac)] 1 % gel 4 g topical QID Qty: 100 0RF Rx Instructions: apply to single knee, ankle, foot; for foot includes sole/toes/top of foot [place] Probiotic 14 billion cell capsule 14 cell PO DAILY diphenoxylate-atropine [Lomotil] 2.5-0.025 mg tablet 1 tab PO TID PRN (Reason: diarrhea) Qty: 20 0RF meloxicam 15 mg tablet 15 mg PO DAILY Qty: 30 3RF epinephrine 0.1 mg/0.1 mL auto-injector 0.1 ml IM ONCE PRN (Reason: hypersensitivity reaction) Qty: 2 0RF Vitamin D3 25 mcg (1,000 unit) Capsule 25 mcg PO DAILY atorvastatin 20 mg tablet 20 mg PO QPM carvedilol 12.5 mg tablet 12.5 mg PO BID gabapentin 300 mg capsule 300 mg PO BEDTIME omeprazole 20 mg capsule,delayed release(DR/EC) 20 mg PO DAILY Otezla 30 mg tablet 30 mg PO BID Ozempic 2 mg/dose (8 mg/3 mL) pen injector 2 mg SUBCUT Q7D Rx Instructions: ON MONDAY Discharge Orders: Discharge ED (Routine); Ordered 05/15/23 Ordered By: René Ramirez Referrals: Christopher Rosario DO [Physician] - 1-3 days Karis Garza MD [Primary Care Provider] - Discharge Diet: Advance as tolerated Discharge Activity: Resume usual activity Patient Instructions: Colitis (ED) Coding Level of Care Code ED Draw End Hand for Evelin Cummings
[2023-05-15] MEDS: diphenoxylate/atropine Tablet 1 TAB PO (11:55)
[2023-05-15] MEDS: sodium chloride 0.9% 1,000 ML 999 ML IV (11:55)
[2023-05-15 11:57] VITALS: BP 173/80; O2SAT 97
[2023-05-15] MEDS: iohexol 350 mg/mL 500 mL Btl (per mL) IV (12:09)
[2023-05-15 13:13] VITALS: BP 165/88; PULSE 78; O2SAT 98
--- NOTE | 2023-05-16 08:59 | DCPLANNER ---
[facility] was seen in ER for colitis and is being referred to General surgery
== END 2023-05-15 13:14 | disposition home or self-care (01) ==
PROVIDERS: Physician Assistant; Emergency Provider Emergency Medicine; PCP Family Medicine
DX: K52.9 Noninfective gastroenteritis and colitis, unspecified (principal); E78.5 Hyperlipidemia, unspecified; I10 Essential (primary) hypertension
CPT/HCPCS: 36415; 74177; 80053; 85025; 99285; J7030; Q9967

== ENCOUNTER → 2023-06-16 13:29 | Outpatient (BNVA) | payer MEDICARE, OTHER, SELFPAY | PROVIDERS: PCP Family Medicine; Visit Provider Family Medicine | DX: Z91.018 Allergy to other foods (principal) | CPT/HCPCS: 86003; 86008 ==

== ENCOUNTER → 2023-08-02 11:32 | Outpatient (BNVA) | payer MEDICARE, OTHER, SELFPAY | PROVIDERS: PCP Family Medicine; Visit Provider Family Medicine | DX: I10 Essential (primary) hypertension (principal); E78.2 Mixed hyperlipidemia; E55.9 Vitamin D deficiency, unspecified; K21.9 Gastro-esophageal reflux disease without esophagitis; Z79.899 Other long term (current) drug therapy | CPT/HCPCS: 80053; 80061; 82306; 84443; 85025 ==

== ENCOUNTER → 2023-09-20 12:48 | Outpatient (BNVA) | payer MEDICARE, OTHER, SELFPAY | PROVIDERS: PCP Family Medicine; Visit Provider Internal Medicine | DX: R13.10 Dysphagia, unspecified (principal); E78.2 Mixed hyperlipidemia; I10 Essential (primary) hypertension; I44.7 Left bundle-branch block, unspecified; R06.00 Dyspnea, unspecified | CPT/HCPCS: 99214 ==

== ENCOUNTER 2023-10-11 12:30 | Outpatient (CLI) | payer MEDICARE, OTHER, SELFPAY ==
--- NOTE | 2023-10-11 12:30 | USCV_ITS ---
Cheryl Beckwith Age: 78 Gender: F : 1945 Exam Date: 10/11/2023 12:21 Ordering Phys: Jozef Boykin M.D ([email or web address]) Technologist: CT Exam Location: [facility] – [place] Indication: BP: 100 / 60 HR: 72 Rhythm: Sinus Technical Quality: Adequate MEASUREMENTS (Male / Female) Normal Values 2D ECHO LVOT Diameter 2.0 cm LV Ejection Fraction MOD 4C 48.6 % LV Ejection Fraction MOD 2C 53.8 % LV Ejection Fraction 2C AL 56.0 % LA Diameter 4.4 cm RA Systolic Volume 4C AL 51.5 ml RA Systolic Volume 4C MOD 52.2 ml LA Sys Volume AL 62.1 cm cubed LA Sys Volume Index AL 33.3 cm cubed/m squared Aorta at Sinotubular Diameter 2.2 cm M-MODE LA Ao Ratio MM 1.6 AV Cusp Separation MM 1.5 cm DOPPLER AV Peak Velocity 130.0 cm/s LVOT Peak Velocity 96.0 cm/s AV Area Cont Eq vti 3.1 cm squared AV Area Cont Eq pk 2.3 cm squared MV Peak Velocity 112.0 cm/s MV Area PHT 4.3 cm squared Mitral E to A Ratio 0.8 TV Peak Velocity 225.0 cm/s TR Peak Velocity 225.0 cm/s TR Peak Gradient 20.3 mmHg TR Mean Velocity 144.0 cm/s TR Mean Gradient 9.8 mmHg TR Velocity Time Integral 56.3 cm TV Peak E Velocity 86.0 cm/s Right Atrial Pressure 3.0 mmHg Pulmonary Artery Systolic Pressu 23.3 mmHg PV Peak Velocity 119.0 cm/s FINDINGS Left Ventricle Left ventricle is normal size. LV systolic function is normal with EF of 55-60%. No regional wall motion abnormalities are seen. Grade 1 diastolic dysfunction Right Ventricle Normal in size and function Right Atrium Normal in size Left Atrium Dilated Mitral Valve Moderate mitral annular calcification. Mild mitral regurgitation. Aortic Valve Structurally normal aortic valve. No significant stenosis or regurgitation. Tricuspid Valve Mild tricuspid regurgitation. Pulmonary artery systolic pressure is normal. Pulmonic Valve Not well visualized Pericardium Normal Aorta Normal in size IVC Appears to be normal CONCLUSIONS LV systolic function is normal with EF of 55-60% Grade 1 diastolic dysfunction Left atrial dilation Mild mitral regurgitation Mild tricuspid regurgitation Compared to prior echocardiogram from 2022, no significant changes are seen Jozef Boykin MD (Electronically Signed) Final Date: 24 October 2023 15:16 S
== END 2023-10-11 12:31 | disposition home or self-care (01) ==
PROVIDERS: PCP Family Medicine; Visit Provider Internal Medicine
DX: I08.3 Combined rheumatic disorders of mitral, aortic and tricuspid valves (principal); R06.02 Shortness of breath
CPT/HCPCS: 93306

== ENCOUNTER 2023-12-12 11:56 | Outpatient (CLI) | payer MEDICARE, OTHER, SELFPAY ==
--- NOTE | 2023-12-12 12:02 | XR_ITS ---
WS: [id number] Exam: XR abdomen 1V* [id number] Date/Time of Exam: 12/12/2023 12:14 PM Reason For Exam: R10.31 - Right lower quadrant pain No bowel obstruction or free air. No sign of organ enlargement. Signs of prior cholecystectomy. Nonsp ecific LEFT pelvic calcification noted. Moderate degenerative changes of the visualized thoracic and lumbar spine. XR/XR abdomen 1V* [id number] IMPRESSION: 1. No acute abdominal process.
== END 2023-12-12 11:57 | disposition home or self-care (01) ==
LOC: RAD 11:58
PROVIDERS: PCP Nurse Practitioner Family; Visit Provider Nurse Practitioner Family
DX: M51.34 Other intervertebral disc degeneration, thoracic region (principal); M51.369 Other intervertebral disc degeneration, lumbar region without mention of lumbar back pain or lower extremity pain; R10.31 Right lower quadrant pain; G89.29 Other chronic pain; Z90.49 Acquired absence of other specified parts of digestive tract
CPT/HCPCS: 74018; 80053; 85025

== ENCOUNTER 2023-12-13 09:15 | Outpatient (CLI) | payer MEDICARE, OTHER, SELFPAY ==
--- NOTE | 2023-12-13 09:30 | CT_ITS ---
WS: [id number] CT ABDOMEN AND PELVIS WITH CONTRAST HISTORY: R10.31 - Right lower quadrant pain TECHNIQUE: Imaging performed of the abdomen and pelvis with IV contrast. Single phase imaging of the abdomen. Coronal and sagittal reformats are submitted. All CT scans at [facility] use at [address] one of these dose optimization techniques: automated exposure control; mA and/or kV adjustment per patient size (includes targeted exams where dose is matched to clinical indication); or iterative re construction. IV CONTRAST: Omnipaque 350; 100 mL IV. Oral contrast: Yes. DLP: 431.15 mGy.cm COMPARISON: 05/15/2023 Lower thorax: Lung bases are clear. Heart is normal size. Moderate-sized hiatal hernia. Liver/biliary system: Normal size liver. There are a few tiny hypodense foci which are stable. Normal portal vein. No bile duct dilatation. Gallbladder: Status post cholecystectomy. Pancreas: Normal size pancreas and pancreatic duct. No adjacent inflammation. Spleen: Normal size spleen. No mass or infarct. Adrenal glands: Normal. Right kidney: Mild cortical thinning. No mass or obstruction. Left kidney: Mild cortical thinning with minimal scarring. No obstruction. Aorta: Mild atherosclerosis with no aneurysm. Lymphadenopathy: None. Free fluid: None. GI tract: Normally distended stomach. No small bowel obstruction or wall thickening. No submucosal ed criss or colonic obstruction. Increased fecal material in the ascending and transverse colon. There is a changing caliber of the colon near the splenic flexure but no mass identified. Probably due to nor mal peristalsis. Abdominal wall: Tiny fat-containing umbilical hernia. Pelvis: No free fluid or adenopathy within the pelvis. Uterus is noted. No pelvic mass. Bones: Increase in the lumbar lordosis. Advanced facet joint arthritis in the lower lumbar spine. Teresa y slight anterolisthesis of L4 on L5. CT/CT abdomen pelvis w con* [id number] IMPRESSION: 1. No residual colitis or enterocolitis. No GI tract obstruction. 2. There is slight change in caliber of the colon near the splenic flexure but no mass associated. This area can be further evaluated by colonoscopy if that has not been performed. This may simply be peristalsis related area of narrowin g. 3. No abnormality noted in the RIGHT lower quadrant. 4. No renal obstruction. 5. No free fluid or free air.
[2023-12-13] MEDS: iohexol 350 mg/mL 500 mL Btl (per mL) IV (11:08)
[2023-12-13] MEDS: iohexol 350 mg/mL 500 mL Btl (per mL) PO (11:08)
== END 2023-12-13 09:16 | disposition home or self-care (01) ==
PROVIDERS: PCP Nurse Practitioner Family; Visit Provider Nurse Practitioner Family
DX: R10.31 Right lower quadrant pain (principal); G89.29 Other chronic pain; Z86.0100 Personal history of colon polyps, unspecified
CPT/HCPCS: 74177

== ENCOUNTER → 2024-01-29 09:14 | Outpatient (BNVA) | payer MEDICARE, OTHER, SELFPAY | PROVIDERS: PCP Nurse Practitioner Family; Visit Provider Internal Medicine Rheumatology | DX: L40.50 Arthropathic psoriasis, unspecified (principal); M15.4 Erosive (osteo)arthritis | CPT/HCPCS: 99214 ==

== ENCOUNTER → 2024-02-28 11:30 | Outpatient (BNVA) | payer MEDICARE, OTHER, SELFPAY | PROVIDERS: PCP Nurse Practitioner Family; Visit Provider Nurse Practitioner Family | DX: R73.03 Prediabetes (principal); E78.2 Mixed hyperlipidemia; E66.9 Obesity, unspecified; K21.9 Gastro-esophageal reflux disease without esophagitis; L40.50 Arthropathic psoriasis, unspecified; K63.9 Disease of intestine, unspecified | CPT/HCPCS: 80076; 82565; 85025; 85651; 86140 ==

== ENCOUNTER → 2024-04-08 10:35 | Outpatient (BNVA) | payer MEDICARE, OTHER, SELFPAY | PROVIDERS: PCP Nurse Practitioner Family; Visit Provider Nurse Practitioner Family | DX: R30.0 Dysuria (principal); Z91.014 Allergy to mammalian meats | CPT/HCPCS: 81000 ==

== ENCOUNTER → 2024-05-09 12:15 | Outpatient (BNVA) | payer MEDICARE, OTHER, SELFPAY | PROVIDERS: PCP Nurse Practitioner Family; Visit Provider Nurse Practitioner Family | DX: L40.50 Arthropathic psoriasis, unspecified (principal); Z91.014 Allergy to mammalian meats | CPT/HCPCS: 80076; 82565; 85025; 85651; 86003; 86008; 86140 ==

== ENCOUNTER 2024-05-29 15:59 | Outpatient (CLI) | payer MEDICARE, OTHER, SELFPAY ==
--- NOTE | 2024-05-29 16:00 | MM_ITS ---
WS: [id number] BILATERAL 3D TOMOSYNTHESIS DIGITAL SCREENING MAMMOGRAM WITH CAD CLINICAL INFORMATION: SCREENING HISTORY: Screening mammogram. No current complaints. COMPARISON: 2023 TECHNIQUE: Bilateral CC and MLO views. FINDINGS: Fatty-replaced breasts bilaterally. No suspicious focal mass, asymmetry, calcifications, or architectural distortion. No evidence of malignancy. Lucent centered calcification RIGHT breast. MM/MM scr tomosynthesis [id number] IMPRESSION: DENSITY: The breasts are almost entirely fatty. BI-RADS: 2 - Benign. FOLLOW UP: 1 Year Follow-up Recommend return to annual screening mammography.
== END 2024-05-29 16:00 | disposition home or self-care (01) ==
LOC: MOBLMAM 16:01
PROVIDERS: PCP Nurse Practitioner Family; Visit Provider Nurse Practitioner Family
DX: Z12.31 Encounter for screening mammogram for malignant neoplasm of breast (principal); R92.313 Mammographic fatty tissue density, bilateral breasts; R92.1 Mammographic calcification found on diagnostic imaging of breast
CPT/HCPCS: 77063; 77067

== ENCOUNTER → 2024-06-19 14:40 | Outpatient (BNVA) | payer MEDICARE, OTHER, SELFPAY | PROVIDERS: PCP Nurse Practitioner Family; Visit Provider Internal Medicine | DX: R00.2 Palpitations (principal); R13.10 Dysphagia, unspecified; E78.2 Mixed hyperlipidemia; I10 Essential (primary) hypertension; I44.7 Left bundle-branch block, unspecified; R06.00 Dyspnea, unspecified | CPT/HCPCS: 99214 ==

== ENCOUNTER 2024-06-20 23:27 | Emergency (ER) | payer MEDICARE, OTHER, SELFPAY ==
[2024-06-20 23:31] VITALS: BP 229/115; PULSE 82; RESP 16; TEMP 36.5; O2SAT 97; BMI 32.0
--- NOTE | 2024-06-20 23:53 | XRR_ITS ---
PROCEDURE INFORMATION: Exam: XR Chest Exam date and time: 06/20/2024 11:56 PM Age: 79 years old Clinical indication: Shortness of breath; Additional info: SOB, HTN urgency TECHNIQUE: Imaging protocol: Radiologic exam of the chest. Views: 1 view. COMPARISON: CR XR chest 2V* [id number] 05/25/2018 11:15 AM FINDINGS: Lungs: Unremarkable. No consolidation. Pleural spaces: Unremarkable. No pleural effusion. No pneumothorax. Heart/Mediastinum: Unremarkable. No cardiomegaly. Bones/joints: Unremarkable. XR/XR chest 1V portable [id number] IMPRESSION: No acute findings.
--- NOTE | 2024-06-20 23:53 | ECG_ITS ---
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 Measurements Intervals [place] Rate: 74 P: 137 CO: 104 QRS: -16 QRSD: 134 T: 123 QT: 396 QTc: 442 Interpretive Statements SINUS RHYTHM WITH SHORT CO INTERVAL POSSIBLE LEFT ATRIAL ENLARGEMENT [-0.1mV P-WAVE IN V1/V2] INTRAVENTRICULAR CONDUCTION DELAY [130+ ms QRS DURATION] POSSIBLE ANTERIOR MYOCARDIAL INFARCTION , OF INDETERMINATE AGE [30 ms Q WAVE IN V3/V4, OR R < 0.2 mV IN V4] INFERIOR MYOCARDIAL INFARCTION , PROBABLY OLD [40+ ms Q WAVE AND/OR ST/T ABNORMALITY IN II/aVF] Compared to ECG 12/21/2020 13:27:44 Short CO interval now present.Intraventricular conduction delay now present Myocardial infarct finding now present. Left-axis deviation no longer present Left bundle-branch block no longer present Electronically Signed On 06-22-2024 13:09:38 CDT by Hansel Solorio M.D. [email or web address]
--- NOTE | 2024-06-21 00:11 | W.ED.RECABL ---
Documented by User: TOMMY Antony 06/23/24 13:22 HPI - Recheck/Abnormal Lab/Rx General: Chief Complaint: Recheck/Abnormal Lab/Rx Stated Complaint: High blood pressure Time Seen by Provider: 06/20/24 23:42 Source: patient Mode of arrival: ambulatory Limitations: no limitations History of Present Illness: Patient is a 79-year-old female who presents the emergency department complaining of hypertension. Reporting associated shortness of breath, no headache, visual changes, or chest pain. Yesterday she saw her risk and insurance consultant, Dr. Boykin and was started on a concrete swimming pool installer for evaluation. She notes a history of heart block and states this is being monitored for this purpose. She takes carvedilol for blood pressure, twice a day 12.5 mg. States that she took 2 tonight but has not noted that her blood pressure has remained 200 systolic. She reports that she used to be on metoprolol as well as lisinopril but started to have issues with angioedema. Recently had flareup of diverticulitis for which she was treated with antibiotics, however no other medication changes. Denies any history of kidney disease. MD complaint: abnormal lab Initial visit (ago): day(s) Description of abnormal result: Hypertension, systolic 200s at home Associated symptoms: shortness of breath Related Data Home Medications ?Medication ?Instructions ?Recorded ?Confirmed Lactobacillus combo no.23 14 14 cell PO DAILY 05/02/22 06/19/24 billion cell capsule ([place] Probiotic) cholecalciferol (vitamin D3) 25 25 mcg PO DAILY 05/15/23 06/19/24 mcg (1,000 unit) capsule (Vitamin D3) potassium 95 mg tablet mg PO 06/19/24 06/19/24 Previous Rx's ?Medication ?Instructions ?Recorded epinephrine 0.1 mg/0.1 mL 0.1 ml IM ONCE PRN 07/25/21 injection, auto-injector hypersensitivity reaction #2 ea furosemide 20 mg tablet (Lasix) 20 mg PO DAILY PRN edema #30 tabs 12/21/22 diclofenac sodium 1 % topical gel 4 g topical QID #100 grams 03/22/23 (Arthritis Pain (diclofenac)) apremilast 30 mg tablet (Otezla) 30 mg PO BID #60 tabs 08/02/23 Held on 01/29/24. Instructions: Doctor's Order atorvastatin 20 mg tablet 20 mg PO QPM #90 tabs 08/02/23 triamcinolone acetonide 0.1 % 1 applic topical TID #15 grams 12/12/23 topical cream leflunomide 10 mg tablet 10 mg PO DAILY #30 tabs 01/29/24 carvedilol 12.5 mg tablet 12.5 mg PO BID #60 tabs 04/23/24 omeprazole 20 mg capsule,delayed 20 mg PO DAILY #90 caps 04/23/24 release Allergies Allergy/AdvReac Type Severity Reaction Status Date / Time Alpha-Gal Allergy Severe beef and Verified 06/20/24 23:40 ([id number]-3,3-Gala pork allergy lisinopril Allergy Severe facial Verified 06/20/24 23:40 swelling metoprolol Allergy Severe facial Verified 06/20/24 23:40 swelling aspirin Allergy Hives, Verified 06/20/24 23:40 facial numbness meperidine (From Demerol) AdvReac nausea and Verified 06/20/24 23:40 vomiting Review of Systems General: Reports: 10 or more systems reviewed and unremarkable except in HPI and below Const: Denies: fever(s), chills or fatigue Eyes: Denies: change in vision ENMT: Denies: throat pain, ear or mastoid pain or nasal discharge Card: Reports: other (Hypertension); Denies: chest pain, palpitations, swelling of feet/ankles or lightheadedness Resp: Reports: dyspnea; Denies: productive cough or wheezing GI: Denies: abdominal pain, nausea, vomiting, diarrhea or constipation : Denies: flank pain, difficulty voiding, dysuria or urinary frequency Musc: Denies: neck pain, back pain or joint pain Skin/Breast: Denies: rash Neuro: Denies: headache(s), numbness in extremities or weakness in extremities PFSH ED PFSH: Medical History Basal cell carcinoma Metabolic syndrome No pertinent past medical history Denies diabetes, asthma, seizures, DVT/PE PCP: Dr. Garza Hyperlipidemia History of Clostridioides difficile infection Psoriatic arthritis Diagnosed in her 60s and was most recently on Embril which was recently stopped. This is managed by her antique jewelry repairer-Dr. Black Hypertension Hx of basal cell carcinoma (~2019) Surgical History History of colonoscopy done on 10/26/[address] Clancy, 2 polyps removed Tonsillectomy planned 01/19/2021--scheduled for a tonsillectomy for left-sided throat swelling and inflamed tonsils Status post left knee replacement Performed in 04/2020 in [facility] Status post surgical removal of malignant neoplasm of skin 2018--lesion removed from face History of total knee replacement (~2009) Right side History of cholecystectomy (~2008) Laparoscopic procedure performed in 2007 History of hernia surgery (~2017) 02/23/2018 performed in [facility] Family History Son Pancreatic cancer at age 30 Grandmother Diabetes paternal Mother Hyperlipidemia Hypertension Brain cancer Father Hypertension Daughter Breast cancer Diagnosed at age 45 Denies family history of Colon cancer Ovarian cancer Heart disease Uterine cancer Thyroid disease Stroke Social History Smoking and tobacco/nicotine status: never used tobacco/nicotine Second hand smoke exposure: Yes () Female Reproductive History: Date of menopause: 03/13/91 Physical Exam Const: COMMON NORMALS: no acute distress, patient oriented x3 and no limitations GENERAL APPEARANCE: cooperative, comfortable and well developed ORIENTATION/CONSCIOUSNESS: Yes awake, Yes oriented to person, Yes oriented to place and Yes oriented to time HENMT: COMMON NORMALS: normocephalic, atraumatic and hearing grossly normal bilaterally HEAD & SCALP: normocephalic and atraumatic Eye: COMMON NORMALS: Equal, round and reactive pupils present, EOMs intact bilaterally and conjunctivae normal CONJUNCTIVA: Yes conjunctivae normal PUPIL: Yes Equal, round and reactive pupils present Neck/C-Spine: COMMON NORMALS: full ROM, supple and no JVD Resp: COMMON NORMALS: normal respiratory effort, No retractions, No use of accessory muscles and clear to auscultation bilaterally AUSCULTATION: clear to auscultation bilaterally Cardio: COMMON NORMALS: no JVD, regular rate, regular rhythm, No clicks present (Cardio), No murmurs present (Cardio) and No rub (Cardio) RATE: regular rate RHYTHM: regular rhythm GI: COMMON NORMALS: Normal to inspection, nondistended, normoactive bowel sounds present, Soft to palpation and non-tender AUSCULTATION: Yes normoactive bowel sounds PALPATION: Yes Soft to palpation RECTAL EXAM: deferred Extremity: COMMON NORMALS: normal to inspection, full ROM and capillary refill normal Neuro: COMMON NORMALS: patient oriented x3, moves all extremities, no focal motor deficits and no sensory deficits noted SENSORIUM/ORIENTATION: Yes oriented to person, Yes oriented to place and Yes oriented to time Skin: COMMON NORMALS: no rashes or lesions noted GENERAL SKIN EXAM: no rashes or lesions noted Course Vital Signs: Vital signs: Vital Signs Temperature 97.7 F 06/20/24 23:31 Pulse Rate 79 06/21/24 00:26 Respiratory Rate 20 H 06/21/24 00:26 Blood Pressure 187/80 06/21/24 02:45 Pulse Oximetry 98 06/21/24 00:26 Oxygen Delivery Me thod Room Air 06/20/24 23:31 MDM - Recheck/Abnormal Lab/Rx Lab Data 06/21/24 00:36 06/21/24 00:36 Radiology Impressions Chest X-Ray 06/20/24 23:53 IMPRESSION: No acute findings. Laboratory Results WBC 10.09 10^3/uL (3.29-11.43) 06/21/24 00:36 Corrected WBC Cancelled 06/20/24 23:54 RBC 4.19 10^6/uL (3.85-5.65) 06/21/24 00:36 Hgb 11.40 g/dL (11.27-16.99) 06/21/24 00:36 Hct 36.2 % (36-47) 06/21/24 00:36 MCV 86.4 fl (85-98) 06/21/24 00:36 MCH 27.2 pg (27-33) 06/21/24 00:36 MCHC 31.5 g/dL (30-55) 06/21/24 00:36 RDW 14.1 % (12.1-15.1) 06/21/24 00:36 Plt Count 207 10^3/cmm (157-399) 06/21/24 00:36 MPV 10.6 fL (7.4-10.4) H 06/21/24 00:36 Gran % Cancelled 06/20/24 23:54 Neut % (Auto) 75.4 % 06/21/24 00:36 Lymph % (Auto) 16.8 % 06/21/24 00:36 [place] % (Auto) 6.2 % 06/21/24 00:36 Eos % (Auto) 0.9 % 06/21/24 00:36 Baso % (Auto) 0.5 % 06/21/24 00:36 Neut # (Auto) 7.60 10^3/uL (1.8-7.7) 06/21/24 00:36 Lymph # (Auto) 1.7 10^3/uL (0.8-4.8) 06/21/24 00:36 [place] # (Auto) 0.6 10^3/uL (0.2-0.9) 06/21/24 00:36 Eos # (Auto) 0.1 10^3/uL (0.0-0.8) 06/21/24 00:36 Baso # (Auto) 0.1 10^3/uL (0.0-0.1) 06/21/24 00:36 Absolute Gran (auto) Cancelled 06/20/24 23:54 Nucleated RBC % (auto) 0 % 06/21/24 00:36 Nucleated RBCs # 0.0 /100WBC 06/21/24 00:36 Sodium 142 mmol/L (136-145) 06/21/24 00:36 Potassium 4.1 mmol/L (3.5-5.1) 06/21/24 00:36 Chloride 107 mmol/L (98-107) 06/21/24 00:36 Carbon Dioxide 22 mmol/L (22-29) 06/21/24 00:36 Anion Gap 17.1 (5-19) 06/21/24 00:36 BUN 18 mg/dL (8-23) 06/21/24 00:36 Creatinine 0.8 mg/dL (0.5-0.9) 06/21/24 00:36 GFR Calculation Not Reportable 06/21/24 00:36 Glucose 130 mg/dL (65-115) H 06/21/24 00:36 Calculated Osmolality 298 mOsm/kg (285-295) H 06/21/24 00:36 Calcium 9.3 mg/dL (8.5-10.5) 06/21/24 00:36 Total Bilirubin 0.4 mg/dL (0.15-1.2) 06/21/24 00:36 AST 20 U/L (0-32) 06/21/24 00:36 ALT 16 U/L (0-33) 06/21/24 00:36 Alkaline Phosphatase 150 U/L (35-105) H 06/21/24 00:36 Troponin T Baseline 14 ng/L (0-10) H 06/21/24 00:36 NT-Pro-B Natriuret Pep 783 pg/mL (0-450) H 06/21/24 00:36 Total Protein 6.7 g/dL (6.6-8.7) 06/21/24 00:36 Albumin 4.1 g/dL (3.5-5.2) 06/21/24 00:36 Globulin 2.6 g/dL (1.3-4.6) 06/21/24 00:36 Urine Color Yellow (Yellow) 06/21/24 00:20 Urine Appearance Clear (CLEAR) 06/21/24 00:20 Urine pH 5 (5-7) 06/21/24 00:20 Ur Specific [place] 1.015 (1.005-1.030) 06/21/24 00:20 Urine Protein Neg (Negative) 06/21/24 00:20 Urine Glucose (UA) Norm (Normal) 06/21/24 00:20 Urine Ketones Negative (Negative) 06/21/24 00:20 Urine Blood Trace (Negative) H 06/21/24 00:20 Urine Nitrate Negative (Negative) 06/21/24 00:20 Urine Bilirubin Neg (Negative) 06/21/24 00:20 Urine Urobilinogen Neg mg/dL (Negative) 06/21/24 00:20 Ur Leukocyte Esterase Negative (Negative) 06/21/24 00:20 Urine RBC 0-2 /hpf (0-2) 06/21/24 00:20 Urine WBC 0-5 /hpf (0-5) 06/21/24 00:20 Ur Squamous Epith Cells 0-5 /hpf (0-5) 06/21/24 00:20 Amorphous Sediment Not Reportable 06/21/24 00:20 Urine Bacteria None seen /hpf (NONE) 06/21/24 00:20 Hyaline Casts 0.40 /lpf 06/21/24 00:20 All radiology interpretation(s) finalized by discharge Discharge Plan Discharge Patient Disposition: Home Clinical Impression: Hypertension Qualifiers: Hypertension type: essential hypertension Qualified Code(s): I10 - Essential (primary) hypertension Condition: Stable Prescriptions: No Action furosemide [Lasix] 20 mg tablet 20 mg PO DAILY PRN (Reason: edema) Qty: 30 1RF diclofenac sodium [Arthritis Pain (diclofenac)] 1 % gel 4 g topical QID Qty: 100 0RF Rx Instructions: apply to single knee, ankle, foot; for foot includes sole/toes/top of foot triamcinolone acetonide 0.1 % cream 1 applic topical TID Qty: 15 0RF Gasotn Probiotic 14 billion cell capsule 14 cell PO DAILY atorvastatin 20 mg tablet 20 mg PO QPM Qty: 90 2RF Otezla 30 mg tablet 30 mg PO BID Qty: 60 5RF potassium 95 mg tablet PO leflunomide 10 mg tablet 10 mg PO DAILY Qty: 30 4RF omeprazole 20 mg capsule,delayed release(DR/EC) 20 mg PO DAILY Qty: 90 2RF carvedilol 12.5 mg tablet 12.5 mg PO BID Qty: 60 2RF epinephrine 0.1 mg/0.1 mL auto-injector 0.1 ml IM ONCE PRN (Reason: hypersensitivity reaction) Qty: 2 0RF Vitamin D3 25 mcg (1,000 unit) Capsule 25 mcg PO DAILY Discharge Orders: Discharge ED (Routine); Ordered 06/21/24 Ordered By: Lane Marinelli Referrals: Latoya Isabel FNP-C [Primary Care Provider] - Patient Instructions: Hypertension (ED) Activity Restrictions/Additional Instructions: Please continue taking your carvedilol as prescribed. Please follow-up with your risk and insurance consultant tomorrow. Follow-up with primary care as well. Continue wearing Holter monitor and taking other prescribed medications at home. Continue monitoring blood pressures at home. Avoid excessive salt intake, please return with any chest pain, recurrent shortness of breath, continued high blood pressure readings, or any other concerns that you have. Print Language: Belarusian Coding Level of Care Code ED Retail [employer] Professional for Chg Fwd Documented by User: Lane Marinelli DO 06/21/24 03:28 HPI - Recheck/Abnormal Lab/Rx General: Chief Complaint: Recheck/Abnormal Lab/Rx Stated Complaint: High blood pressure Time Seen by Provider: 06/20/24 23:42 Related Data Home Medications ?Medication ?Instructions ?Recorded ?Confirmed Lactobacillus combo no.23 14 14 cell PO DAILY 05/02/22 06/19/24 billion cell capsule ([place]aston Probiotic) cholecalciferol (vitamin D3) 25 25 mcg PO DAILY 05/15/23 06/19/24 mcg (1,000 unit) capsule (Vitamin D3) potassium 95 mg tablet mg PO 06/19/24 06/19/24 Previous Rx's ?Medication ?Instructions ?Recorded epinephrine 0.1 mg/0.1 mL 0.1 ml IM ONCE PRN 07/25/21 injection, auto-injector hypersensitivity reaction #2 ea furosemide 20 mg tablet (Lasix) 20 mg PO DAILY PRN edema #30 tabs 12/21/22 diclofenac sodium 1 % topical gel 4 g topical QID #100 grams 03/22/23 (Arthritis Pain (diclofenac)) apremilast 30 mg tablet (Otezla) 30 mg PO BID #60 tabs 08/02/23 Held on 01/29/24. Instructions: Doctor's Order atorvastatin 20 mg tablet 20 mg PO QPM #90 tabs 08/02/23 triamcinolone acetonide 0.1 % 1 applic topical TID #15 grams 12/12/23 topical cream leflunomide 10 mg tablet 10 mg PO DAILY #30 tabs 01/29/24 carvedilol 12.5 mg tablet 12.5 mg PO BID #60 tabs 04/23/24 omeprazole 20 mg capsule,delayed 20 mg PO DAILY #90 caps 04/23/24 release Allergies Allergy/AdvReac Type Severity Reaction Status Date / Time Alpha-Gal Allergy Severe beef and Verified 06/20/24 23:40 (Pxjifereh-Qnaho-2,3-Gala pork allergy lisinopril Allergy Severe facial Verified 06/20/24 23:40 swelling metoprolol Allergy Severe facial Verified 06/20/24 23:40 swelling aspirin Allergy Hives, Verified 06/20/24 23:40 facial numbness meperidine (From Demerol) AdvReac nausea and Verified 06/20/24 23:40 vomiting PFSH ED PFSH: Medical History Basal cell carcinoma Metabolic syndrome No pertinent past medical history Denies diabetes, asthma, seizures, DVT/PE PCP: Dr. Garza Hyperlipidemia History of Clostridioides difficile infection Psoriatic arthritis Diagnosed in her 60s and was most recently on Embril which was recently stopped. This is managed by her antique jewelry repairer-Dr. Black Hypertension Hx of basal cell carcinoma (~2019) Surgical History History of colonoscopy done on 10/26/[address] Clancy, 2 polyps removed Tonsillectomy planned 01/19/2021--scheduled for a tonsillectomy for left-sided throat swelling and inflamed tonsils Status post left knee replacement Performed in 04/2020 in [facility] Status post surgical removal of malignant neoplasm of skin 2018--lesion removed from face History of total knee replacement (~2009) Right side History of cholecystectomy (~2008) Laparoscopic procedure performed in 2007 History of hernia surgery (~2018) 02/23/2018 performed in [facility] Family History Son Pancreatic cancer at age 30 Grandmother Diabetes paternal Mother Hyperlipidemia Hypertension Brain cancer Father Hypertension Daughter Breast cancer Diagnosed at age 45 Denies family history of Colon cancer Ovarian cancer Heart disease Uterine cancer Thyroid disease Stroke Social History Smoking and tobacco/nicotine status: never used tobacco/nicotine Second hand smoke exposure: Yes () Course Vital Signs: Vital signs: Vital Signs Temperature 97.7 F 06/20/24 23:31 Pulse Rate 79 06/21/24 00:26 Respiratory Rate 20 H 06/21/24 00:26 Blood Pressure 187/80 06/21/24 02:45 Pulse Oximetry 98 06/21/24 00:26 Oxygen Delivery Me thod Room Air 06/20/24 23:31 MDM - Recheck/Abnormal Lab/Rx Medical Decision Making Care transferred over myself at shift change, patient was given additional 10 mg of hydralazine, blood pressure improved. Patient be discharged home to follow-up with PCP within next 7 days. Lab Data 06/21/24 00:36 06/21/24 00:36 Radiology Impressions Chest X-Ray 06/20/24 23:53 IMPRESSION: No acute findings. Laboratory Results WBC 10.09 10^3/uL (3.29-11.43) 06/21/24 00:36 Corrected WBC Cancelled 06/20/24 23:54 RBC 4.19 10^6/uL (3.85-5.65) 06/21/24 00:36 Hgb 11.40 g/dL (11.27-16.99) 06/21/24 00:36 Hct 36.2 % (36-47) 06/21/24 00:36 MCV 86.4 fl (85-98) 06/21/24 00:36 MCH 27.2 pg (27-33) 06/21/24 00:36 MCHC 31.5 g/dL (30-55) 06/21/24 00:36 RDW 14.1 % (12.1-15.1) 06/21/24 00:36 Plt Count 207 10^3/cmm (157-399) 06/21/24 00:36 MPV 10.6 fL (7.4-10.4) H 06/21/24 00:36 Gran % Cancelled 06/20/24 23:54 Neut % (Auto) 75.4 % 06/21/24 00:36 Lymph % (Auto) 16.8 % 06/21/24 00:36 [place] % (Auto) 6.2 % 06/21/24 00:36 Eos % (Auto) 0.9 % 06/21/24 00:36 Baso % (Auto) 0.5 % 06/21/24 00:36 Neut # (Auto) 7.60 10^3/uL (1.8-7.7) 06/21/24 00:36 Lymph # (Auto) 1.7 10^3/uL (0.8-4.8) 06/21/24 00:36 [place] # (Auto) 0.6 10^3/uL (0.2-0.9) 06/21/24 00:36 Eos # (Auto) 0.1 10^3/uL (0.0-0.8) 06/21/24 00:36 Baso # (Auto) 0.1 10^3/uL (0.0-0.1) 06/21/24 00:36 Absolute Gran (auto) Cancelled 06/20/24 23:54 Nucleated RBC % (auto) 0 % 06/21/24 00:36 Nucleated RBCs # 0.0 /100WBC 06/21/24 00:36 Sodium 142 mmol/L (136-145) 06/21/24 00:36 Potassium 4.1 mmol/L (3.5-5.1) 06/21/24 00:36 Chloride 107 mmol/L (98-107) 06/21/24 00:36 Carbon Dioxide 22 mmol/L (22-29) 06/21/24 00:36 Anion Gap 17.1 (5-19) 06/21/24 00:36 BUN 18 mg/dL (8-23) 06/21/24 00:36 Creatinine 0.8 mg/dL (0.5-0.9) 06/21/24 00:36 GFR Calculation Not Reportable 06/21/24 00:36 Glucose 130 mg/dL (65-115) H 06/21/24 00:36 Calculated Osmolality 298 mOsm/kg (285-295) H 06/21/24 00:36 Calcium 9.3 mg/dL (8.5-10.5) 06/21/24 00:36 Total Bilirubin 0.4 mg/dL (0.15-1.2) 06/21/24 00:36 AST 20 U/L (0-32) 06/21/24 00:36 ALT 16 U/L (0-33) 06/21/24 00:36 Alkaline Phosphatase 150 U/L (35-105) H 06/21/24 00:36 Troponin T Baseline 14 ng/L (0-10) H 06/21/24 00:36 NT-Pro-B Natriuret Pep 783 pg/mL (0-450) H 06/21/24 00:36 Total Protein 6.7 g/dL (6.6-8.7) 06/21/24 00:36 Albumin 4.1 g/dL (3.5-5.2) 06/21/24 00:36 Globulin 2.6 g/dL (1.3-4.6) 06/21/24 00:36 Urine Color Yellow (Yellow) 06/21/24 00:20 Urine Appearance Clear (CLEAR) 06/21/24 00:20 Urine pH 5 (5-7) 06/21/24 00:20 Ur Specific [place] 1.015 (1.005-1.030) 06/21/24 00:20 Urine Protein Neg (Negative) 06/21/24 00:20 Urine Glucose (UA) Norm (Normal) 06/21/24 00:20 Urine Ketones Negative (Negative) 06/21/24 00:20 Urine Blood Trace (Negative) H 06/21/24 00:20 Urine Nitrate Negative (Negative) 06/21/24 00:20 Urine Bilirubin Neg (Negative) 06/21/24 00:20 Urine Urobilinogen Neg mg/dL (Negative) 06/21/24 00:20 Ur Leukocyte Esterase Negative (Negative) 06/21/24 00:20 Urine RBC 0-2 /hpf (0-2) 06/21/24 00:20 Urine WBC 0-5 /hpf (0-5) 06/21/24 00:20 Ur Squamous Epith Cells 0-5 /hpf (0-5) 06/21/24 00:20 Amorphous Sediment Not Reportable 06/21/24 00:20 Urine Bacteria None seen /hpf (NONE) 06/21/24 00:20 Hyaline Casts 0.40 /lpf 06/21/24 00:20 Discharge Plan Discharge Patient Disposition: Home Clinical Impression: Hypertension Qualifiers: Hypertension type: essential hypertension Qualified Code(s): I10 - Essential (primary) hypertension Condition: Stable Prescriptions: No Action furosemide [Lasix] 20 mg tablet 20 mg PO DAILY PRN (Reason: edema) Qty: 30 1RF diclofenac sodium [Arthritis Pain (diclofenac)] 1 % gel 4 g topical QID Qty: 100 0RF Rx Instructions: apply to single knee, ankle, foot; for foot includes sole/toes/top of foot triamcinolone acetonide 0.1 % cream 1 applic topical TID Qty: 15 0RF [place] Probiotic 14 billion cell capsule 14 cell PO DAILY atorvastatin 20 mg tablet 20 mg PO QPM Qty: 90 2RF Otezla 30 mg tablet 30 mg PO BID Qty: 60 5RF potassium 95 mg tablet PO leflunomide 10 mg tablet 10 mg PO DAILY Qty: 30 4RF omeprazole 20 mg capsule,delayed release(DR/EC) 20 mg PO DAILY Qty: 90 2RF carvedilol 12.5 mg tablet 12.5 mg PO BID Qty: 60 2RF epinephrine 0.1 mg/0.1 mL auto-injector 0.1 ml IM ONCE PRN (Reason: hypersensitivity reaction) Qty: 2 0RF Vitamin D3 25 mcg (1,000 unit) Capsule 25 mcg PO DAILY Discharge Orders: Discharge ED (Routine); Ordered 06/21/24 Ordered By: Lane Marinelli Referrals: Latoya Isabel FNP-C [Primary Care Provider] - Patient Instructions: Hypertension (ED) Activity Restrictions/Additional Instructions: Please continue taking your carvedilol as prescribed. Please follow-up with your risk and insurance consultant tomorrow. Follow-up with primary care as well. Continue wearing Holter monitor and taking other prescribed medications at home. Continue monitoring blood pressures at home. Avoid excessive salt intake, please return with any chest pain, recurrent shortness of breath, continued high blood pressure readings, or any other concerns that you have. Print Language: Belarusian Coding Level of Care Code ED [employer] Professional for Evelin Cummings
[2024-06-21 00:26] VITALS: BP 130/96; PULSE 79; RESP 20; O2SAT 98
[2024-06-21 00:32] LABS: Bacteria Urine None Seen /hpf; RBC Urine 0-2 /hpf (0-2); Squamous Epithelial Cell Urine 0-5 /hpf (0-5); WBC Urine 0-5 /hpf (0-5)
[2024-06-21 00:34] LABS: Add Urine Microscopic? YES; Bilirubin Urine Neg (Negative); Blood Urine Trace (Negative); Glucose Urine UA Norm (Normal); Ketones Urine Negative (Negative); Leukocyte Esterase Urine Negative (Negative); Nitrate Urine Negative (Negative); Protein Urine Neg (Negative); Specific Gravity, Urine 1.015 (1.005-1.030); Urine Appearance Clear (CLEAR); Urine Color Yellow (Yellow); Urobilinogen Urine Neg (Negative); pH Urine 5 (5-7)
[2024-06-21 00:44] LABS: Basophils # 0.1 10^3/uL (0.0-0.1); Basophils % 0.5 %; Eosinophils # 0.1 10^3/uL (0.0-0.8); Eosinophils % 0.9 %; Hematocrit 36.2 % (36-47); Lymphocytes # 1.7 10^3/uL (0.8-4.8); Lymphocytes % 16.8 %; Mean Corpuscular HGB Conc 31.5 g/dL (30-55); Mean Corpuscular Hemoglobin 27.2 pg (27-33); Mean Corpuscular Volume 86.4 fl (85-98); Mean Platelet Volume 10.6 fL (7.4-10.4); Monocytes # 0.6 10^3/uL (0.2-0.9); Monocytes % 6.2 %; Neutrophils % 75.4 %; Nucleated Red Blood Cells % 0 %; Platelet Count 207 10^3/cmm (157-399); Red Blood Count 4.19 10^6/uL (3.85-5.65); Red Cell Distribution Width 14.1 % (12.1-15.1); White Blood Count 10.09 10^3/uL (3.29-11.43)
[2024-06-21 01:01] LABS: Troponin(5th) Baseline 14 ng/L (0-10)
[2024-06-21 01:13] VITALS: BP 187/96
[2024-06-21 01:17] LABS: Alanine Aminotransferase 16 U/L (0-33); Albumin Level 4.1 g/dL (3.5-5.2); Alkaline Phosphatase 150 U/L (35-105); Anion Gap 17.1 (5-19); Aspartate Amino Transferase 20 U/L (0-32); Blood Urea Nitrogen 18 mg/dL (8-23); Calcium 9.3 mg/dL (8.5-10.5); Carbon Dioxide 22 mmol/L (22-29); Chloride 107 mmol/L (98-107); Creatinine Clr Calc Pharmacy 57.4655; Globulin 2.6 g/dL (1.3-4.6); Glucose 130 mg/dL (65-115); NT Pro B Type Natriuretic Pept 783 pg/mL (0-450); Osmolality Calculated 298 mOsm/kg (285-295); Potassium 4.1 mmol/L (3.5-5.1); Sodium 142 mmol/L (136-145); Total Bilirubin 0.4 mg/dL (0.15-1.2); Total Protein 6.7 g/dL (6.6-8.7)
[2024-06-21] MEDS: hyDRALAzine 20 mg/mL INJ 1 mL 10 MG IVP ×2 (01:20→03:05)
--- NOTE | 2024-06-21 01:46 | ECG_ITS ---
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 Measurements Intervals [place] Rate: 81 P: 140 [place]: 127 QRS: -18 QRSD: 134 T: 142 QT: 406 QTc: 474 Interpretive Statements ECTOPIC ATRIAL RHYTHM POSSIBLE LEFT ATRIAL ENLARGEMENT [-0.1mV P-WAVE IN V1/V2] LEFT BUNDLE BRANCH BLOCK [120+ ms QRS DURATION, 80+ ms Q/S IN V1/V2, 85+ ms R IN I/aVL/V5/V6] Compared to ECG 06/21/2024 00:01:27 Ectopic atrial rhythm now present Left bundle-branch block now present Sinus rhythm no longer present Short [place] interval no longer present Intraventricular conduction delay no longer present Myocardial infarct finding no longer present Electronically Signed On 06-22-2024 13:24:51 CDT by Hansel Solorio M.D. [email or web address]
[2024-06-21 02:24] VITALS: BP 189/78
[2024-06-21 02:45] VITALS: BP 187/80
== END 2024-06-21 03:36 | disposition home or self-care (01) ==
PROVIDERS: Emergency Provider Physician Assistant; PCP Nurse Practitioner Family
DX: I10 Essential (primary) hypertension (principal); E78.5 Hyperlipidemia, unspecified
CPT/HCPCS: 36415; 71045; 80053; 81001; 83880; 84484; 85025; 93005; 96374; 96375; 99285; J0360

== ENCOUNTER → 2024-06-26 08:36 | Outpatient (BNVA) | payer MEDICARE, OTHER, SELFPAY | PROVIDERS: PCP Nurse Practitioner Family; Visit Provider Nurse Practitioner Family | DX: I10 Essential (primary) hypertension (principal); I44.7 Left bundle-branch block, unspecified; E78.2 Mixed hyperlipidemia; R06.00 Dyspnea, unspecified; I34.0 Nonrheumatic mitral (valve) insufficiency | CPT/HCPCS: 99214 ==

== ENCOUNTER → 2024-07-12 10:25 | Outpatient (BNVA) | payer MEDICARE, OTHER, SELFPAY | PROVIDERS: PCP Family Medicine; Visit Provider Nurse Practitioner Family | DX: I10 Essential (primary) hypertension (principal); I49.8 Other specified cardiac arrhythmias; I49.3 Ventricular premature depolarization; I44.7 Left bundle-branch block, unspecified; R06.09 Other forms of dyspnea | CPT/HCPCS: 99214 ==

== ENCOUNTER → 2024-07-17 14:16 | Outpatient (BNVA) | payer MEDICARE, OTHER, SELFPAY | PROVIDERS: PCP Family Medicine; Visit Provider Internal Medicine Rheumatology | DX: L40.50 Arthropathic psoriasis, unspecified (principal); M79.673 Pain in unspecified foot | CPT/HCPCS: 99214 ==

== ENCOUNTER 2024-08-01 13:13 | Outpatient (CLI) | payer MEDICARE, OTHER, SELFPAY ==
--- NOTE | 2024-08-01 13:30 | USCV_ITS ---
Cheryl Beckwith Age: 79 Gender: F : 1945 Exam Date: 08/01/2024 13:51 Ordering Phys: Nevin Gaona Technologist: Exam Location: [facility] [place] Indication: sob cp BP: 134 / 74 HR: 78 Rhythm: Sinus Technical Quality: Adequate MEASUREMENTS (Male / Female) Normal Values 2D ECHO LV Diastolic Diameter PLAX 4.3 cm 4.2 - 5.9 / 3.9 - 5.3 cm IVS Diastolic Thickness 1.2 cm 0.6 - 1.0 / 0.6 - 0.9 cm IVS Systolic Thickness 1.5 cm LVPW Diastolic Thickness 1.3 cm 0.6 - 1.0 / 0.6 - 0.9 cm LVPW Systolic Thickness 1.9 cm LVOT Diameter 2.0 cm LV Ejection Fraction 2D Teich 59.6 % LV Ejection Fraction MOD 4C 58.6 % LV Ejection Fraction MOD 2C 58.4 % LV Ejection Fraction 2C AL 57.3 % LA Diameter 4.0 cm RA Systolic Volume 4C AL 61.6 ml RA Systolic Volume 4C MOD 56.9 ml Aorta at Sinotubular Diameter 2.8 cm M-MODE LA Ao Ratio MM 1.5 AV Cusp Separation MM 1.9 cm DOPPLER AV Peak Velocity 175.0 cm/s LVOT Peak Velocity 99.0 cm/s AV Area Cont Eq vti 2.5 cm squared AV Area Cont Eq pk 1.8 cm squared MV Area PHT 4.3 cm squared Mitral E to A Ratio 0.7 TV Peak Velocity 253.5 cm/s TR Peak Velocity 260.0 cm/s TR Peak Gradient 27.0 mmHg TV Peak E Velocity 90.0 cm/s PV Peak Velocity 111.0 cm/s FINDINGS Left Ventricle Normal left ventricular size and systolic function, EF 59%. Mild left ventricular hypertrophy. Abnormal septal motion consistent with conduction abnormality. Grade I/IV diastolic dysfunction (abnormal relaxation filling pattern), normal to mildly elevated filling pressures. Right Ventricle The right ventricle is normal in size and function. Right Atrium The right atrium is normal in size. Left Atrium Mildly increased left atrial size. Mitral Valve Moderate mitral annular calcification. Aortic Valve No gross abnormalities noted Tricuspid Valve . Trace tricuspid valve regurgitation. Estimated pulmonary artery peak systolic pressure 27 mmHg Pulmonic Valve Pulmonic valve not well visualized. Pericardium Normal pericardium without effusion. Aorta Normal ascending aorta dimension. IVC Inferior vena cava not visualized. CONCLUSIONS Normal left ventricular size and systolic function, EF 59%. Mild left ventricular hypertrophy. Abnormal septal motion consistent with conduction abnormality. Grade I/IV diastolic dysfunction (abnormal relaxation filling pattern), normal to mildly elevated filling pressures. Mildly increased left atrial size. Moderate mitral annular calcification. Trace tricuspid valve regurgitation. Estimated pulmonary artery peak systolic pressure 27 mmHg. There is no pericardial effusion. There are no intracardiac masses. Compared to the study from 10/11/2023, there may not be a significant change Dr Hansel Solorio MD FAC (Electronically Signed) Final Date: 02 Aug 2024 09:26 S
== END 2024-08-01 13:14 | disposition home or self-care (01) ==
PROVIDERS: PCP Nurse Practitioner Family; Visit Provider Nurse Practitioner Family
DX: R06.00 Dyspnea, unspecified (principal); I51.7 Cardiomegaly; R93.1 Abnormal findings on diagnostic imaging of heart and coronary circulation; I34.81 Nonrheumatic mitral (valve) annulus calcification
CPT/HCPCS: 93306

== ENCOUNTER → 2024-08-16 10:13 | Outpatient (BNVA) | payer MEDICARE, OTHER, SELFPAY | PROVIDERS: PCP Nurse Practitioner Family; Visit Provider Internal Medicine Rheumatology | DX: Z79.899 Other long term (current) drug therapy (principal) | CPT/HCPCS: 80076; 82565; 85025; 85651; 86140 ==

== ENCOUNTER 2024-08-22 08:40 | Outpatient (CLI) | payer MEDICARE, OTHER, SELFPAY ==
[2024-08-22 08:48] VITALS: BMI 32.5
--- NOTE | 2024-08-22 08:51 | ECG_ITS ---
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 Interpretive Statements Lung unchanged pre/post procedure; Intraprocedure shortess of breath; Symptoms resoled by discharge PROCEDURE: At the baseline, the EKG revealed normal sinus rhythm with left bundle branch block pattern. Possible old anteroseptal CT. Nonspecific ST-T changes. The baseline heart was 66 bpm with a blood pressue of 128/101 mm of Hg Lexiscan was infused over a period of 20 seconds. A total of 0.4 milligrams of Lexiscan was infused. The stress phase was continued for a total of 5 minutes. Heart rate at the end of the stress phase was 89 bpm with a blood pressure 130/78 mm of Hg. The EKG at the peak infusion revealed no significant changes. Sestamibi was injected 20 seconds after the Lexiscan infusion. Heart rate at the end of the recovery phase was 84 bpm with a blood pressure of 125/71 mm of Hg. CONCLUSION: 1. No significant EKG changes with the LexiScan infusion 2. No LexiScan induced chest pain or cardiac arrhythmia 3. Normal blood pressure and heart rate response 4. Sestamibi/sestamibi perfusion scan pending; see separate report. Electronically Signed On 08-23-2024 22:23:26 CDT by Hansel Solorio M.D. [email or web address]
--- NOTE | 2024-08-22 08:52 | NMCV_ITS ---
NM cristal perf SPECT r/s* [id number] Cheryl Beckwith Age: 79 Gender: F : 1945 Exam Date: 08/22/2024 10:04 Ordering Phys: Nevin Gaona Technologist: KUMAR De Souza Exam Location: [facility] Indications: CP STRESS TEST Please see separate stress test report in [facility] for full findings IMAGE PROTOCOL Rest/Stress 1 Lexiscan Day Radiopharmaceutical Dose (mCi) Administration Site Administered by Rest: Tc-99m 10.4 IV Alana Dewitt, NANOTECHNOLOGIST Sestamibi Stress:Tc-99m 32.8 IV Alana Renate, NANOTECHNOLOGIST Sestamibi Rest: 08/22/2024 60 Discovery 630 Stress: 08/22/2024 30 Discovery 630 0.4mg Lexiscan. Images obtained in supine and prone position. SPECT RESULTS Technical Quality: Good Raw Data Analysis: Normal Image Corrections: No attenuation or motion correction applied Summed Stress Score: 12 Summed Rest Score: 12 Summed Difference Score: 0 PERFUSION FINDINGS Moderate area of minimal to moderately decreased tracer uptake involving the mid and apical inferior, mid inferolateral, mid inferoseptal, apical lateral, apical septal and LV apex. No significant reversibility was noted in these areas. FUNCTIONAL RESULTS (calculated via Gated SPECT) Stress Image LV EF (%): 76 Stress EDV (mL):87 TID: 1.05 Stress ESV (mL):21 FUNCTIONAL FINDINGS: Segmental wall motion analysis revealing no gross wall motion abnormalities IMPRESSIONS 1. Myocardial perfusion imaging revealing moderate area of persistent decreased tracer uptake involving the inferior, inferoseptal, inferolateral and apical segments. 2. Normal LV ejection fraction of 76%. 3. LV wall motion analysis revealing no gross wall motion abnormalities. 4. Normal LV volume Low probability for coronary ischemia, based on the above findings Dr Hansel Solorio MD [facility] (Electronically Signed) Final Date: 22 August 2024 13:03 S
[2024-08-22] MEDS: regadenoson 0.4 Mg/5 ml Syringe IVP (11:00)
[2024-08-22 11:13] VITALS: BP 127/84; PULSE 78
== END 2024-08-22 08:41 | disposition home or self-care (01) ==
LOC: CDL 08:43
PROVIDERS: PCP Nurse Practitioner Family; Visit Provider Nurse Practitioner Family
DX: R06.02 Shortness of breath (principal); R93.1 Abnormal findings on diagnostic imaging of heart and coronary circulation
CPT/HCPCS: 36415; 78452; 93017; 96374; A9500; J2785

== ENCOUNTER → 2024-11-28 11:03 | Outpatient (BNVA) | payer MEDICARE, OTHER, SELFPAY | PROVIDERS: PCP Nurse Practitioner Family; Visit Provider Internal Medicine Rheumatology | DX: Z79.899 Other long term (current) drug therapy (principal) | CPT/HCPCS: 80076; 82565; 85025; 85651; 86140 ==

== ENCOUNTER → 2024-12-04 13:34 | Outpatient (BNVA) | payer MEDICARE, OTHER, SELFPAY | PROVIDERS: PCP Nurse Practitioner Family; Visit Provider Internal Medicine Rheumatology | DX: L40.50 Arthropathic psoriasis, unspecified (principal); M79.673 Pain in unspecified foot; Z71.85 Encounter for immunization safety counseling | CPT/HCPCS: 99214 ==

== ENCOUNTER → 2024-12-13 11:22 | Outpatient (BNVA) | payer MEDICARE, OTHER, SELFPAY | PROVIDERS: PCP Nurse Practitioner Family; Visit Provider Internal Medicine Rheumatology | DX: D72.818 Other decreased white blood cell count (principal) | CPT/HCPCS: 85025 ==